=== PATIENT | male | born 1935 | race Caucasian/White ===

== ENCOUNTER 2016-05-27 09:17 | Outpatient (CLI) | payer MEDICARE, OTHER | END 2016-05-27 09:18 | disposition home or self-care (01) | DX: M79.672 Pain in left foot (principal) ==

== ENCOUNTER 2016-08-25 07:11 | Outpatient (CLI) | payer MEDICARE, OTHER | END 2016-08-25 07:12 | disposition home or self-care (01) | DX: I10 Essential (primary) hypertension (principal); M51.36 Other intervertebral disc degeneration, lumbar region; D64.9 Anemia, unspecified; E78.5 Hyperlipidemia, unspecified ==

== ENCOUNTER 2017-02-10 12:42 | Outpatient (CLI) | payer MEDICARE, OTHER ==
[2017-02-10 13:06] LABS: ALBUMIN/GLOBULIN RATIO 1.4 (1.0-2.2); BILIRUBIN,TOTAL 0.9 mg/dL (0.2-1.0); CALCIUM 9.9 mg/dL (8.5-10.3); CREATININE 0.8 mg/dL (0.6-1.2); TOTAL PROTEIN 7.8 g/dL (6.7-8.2)
== END 2017-02-10 12:43 | disposition home or self-care (01) ==
LOC: LAB 12:42
PROVIDERS: ATTEND Family Medicine
DX: D64.9 Anemia, unspecified (principal); I10 Essential (primary) hypertension; K21.9 Gastro-esophageal reflux disease without esophagitis; E78.5 Hyperlipidemia, unspecified; Z12.5 Encounter for screening for malignant neoplasm of prostate
CPT/HCPCS: 36415; 80053

== ENCOUNTER 2017-02-13 07:41 | Outpatient (CLI) | payer MEDICARE, OTHER ==
[2017-02-13] MEDS ORDERED: GADOBUTROL 7.5 MMOL/7.5 ML VIAL ONE (08:02)
[2017-02-13] MEDS ORDERED: GADOBUTROL 7.5 MMOL/7.5 ML VIAL IVP ONE (08:30)
--- NOTE | 2017-02-13 16:17 | MRI Report ---
EXAM: MRI LUMBAR SPINE WITHOUT AND WITH CONTRAST EXAM DATE: 02/13/2017 08:36 AM. CLINICAL HISTORY: Acute low back pain after surgery 2 years ago. Pain radiates to the left leg for 2 weeks. COMPARISONS: 02/02/2017 radiograph, MRI 05/06/2013. TECHNIQUE: Multiplanar, multisequence T1-weighted and fluid-sensitive sequences of the lumbar spine f rom T12 to S1 before and after administration of intravenous contrast. IV contrast: 6 mL Gadavist. Ot her: None. FINDINGS: Spinal Cord: The conus terminates at T12-L1. No signal abnormality in the visualized spinal cord. Alignment: Grade 1 anterolisthesis of L3 on L4 measures 4 mm and is new since the prior MRI. Bone Marrow: The prior radiograph demonstrates 5 nonrib-bearing lumbar vertebral bodies. No fractures . Type I endplate changes at L3-L4. There has been an anterior posterior fusion procedure at L4-L5 wi th paired posterior rods, bilateral pedicle screws, and intervertebral disk spacer. Solid bony union cannot be confirmed by this modality. Disk Levels/Facets: T11-T12: Unremarkable. T12-L1: Unremarkable. L1-L2: Unremarkable. L2-L3: Moderate ligamentum flavum hypertrophy and facet hypertrophy result in mild spinal canal and m inimal bilateral foraminal narrowing. L3-L4: There is new moderate disk height loss. The patient has a central posterior disk extrusion todd t extends superiorly into the left along the L3 vertebral body. This combined with moderate ligamentu m flavum hypertrophy, and severe facet hypertrophy results in moderate spinal canal and mild bilatera l foraminal narrowing. The extruded disk fragment measures approximately 1.6 x 0.7 x 1.0 cm. L4-L5: A right-sided laminotomy has been performed at this level and the ligamentum flava have been removed. A mild disk bulge and severe facet osteophyte as cause minimal bilateral foraminal narrowing . L5-S1: There is severe disk height loss and desiccation. A broad-based disk bulge and mild facet hype rtrophy cause minimal bilateral foraminal narrowing. Spinal Canal: No enhancing masses within the spinal canal. No epidural abscess. Musculature: Normal. No edema, abnormal enhancement, or fatty atrophy. Other: The visualized pelvic cavity is unremarkable. IMPRESSION: 1. Fusion procedure at L4-L5. 2. New grade 1 anterolisthesis of L3 on L4. 3. Mild spinal canal narrowing at L2-L3 due to posterior element degenerative changes. 4. Moderate spinal canal and mild bilateral foraminal narrowing at L3-L4 due to posterior element deg enerative changes and new disk extrusion. Comment: The following findings are so common in adults without low back pain that while we report th eir presence, they must be interpreted with caution and in the context of the clinical situation. (Re annabel Madison et al, Spine 2001) Prevalence of findings in patients without low back pain: Disk degeneration (any evidence): 92% Disk desiccation/T2 signal loss: 83% Disk height loss: 56% Disk bulge: 64% Disk protrusion: 32% Annular tear/high intensity zone: 38% [facility] Referring Provider Line: [phone] SITE ID: [id number]
== END 2017-02-13 07:42 | disposition home or self-care (01) ==
LOC: DI 07:41
PROVIDERS: ATTEND Family Medicine
DX: M51.26 Other intervertebral disc displacement, lumbar region (principal); M47.896 Other spondylosis, lumbar region; M51.37 Other intervertebral disc degeneration, lumbosacral region; M47.897 Other spondylosis, lumbosacral region; M51.36 Other intervertebral disc degeneration, lumbar region; Z98.1 Arthrodesis status; M43.16 Spondylolisthesis, lumbar region
CPT/HCPCS: 72158; A9585

== ENCOUNTER 2017-03-13 07:08 | Outpatient (CLI) | payer MEDICARE, OTHER ==
[2017-03-13 14:03] LABS: ALBUMIN/GLOBULIN RATIO 1.4 (1.0-2.2); BILIRUBIN,TOTAL 0.6 mg/dL (0.2-1.0); CREATININE 0.9 mg/dL (0.6-1.2); POTASSIUM 4.6 mmol/L (3.5-5.0); TOTAL PROTEIN 7.1 g/dL (6.7-8.2)
== END 2017-03-13 07:09 | disposition home or self-care (01) ==
LOC: LAB.WCP 07:08
PROVIDERS: ATTEND Family Medicine
DX: D64.9 Anemia, unspecified (principal); I10 Essential (primary) hypertension; K21.9 Gastro-esophageal reflux disease without esophagitis; E78.5 Hyperlipidemia, unspecified; Z12.5 Encounter for screening for malignant neoplasm of prostate
CPT/HCPCS: 36415; 80053

== ENCOUNTER 2017-05-21 11:07 | Emergency (ER) | payer MEDICARE, OTHER ==
--- NOTE | 2017-05-21 11:22 | ED Physician Documentation ---
History of Present Illness - Stated complaint Stated Complaint: SOA/CHEST AND SHOULDER PX - Chief complaint Chief Complaint: Cardiac - Additonal information Additional information: hx from pt today at 6 AM he leaned over and felt " a catch" in his L trap region hurts to breathe and move every since so relief with going for a walk no relief with rest sitting in a chair hx PACs but not CAD recent mild cough no leg edema Review of Systems Constitutional: denies: Fever Cardiac: denies: Chest pain / pressure (posterior trap region), Pedal edema Respiratory: reports: Cough. denies: Dyspnea GI: denies: Abdominal Pain, Nausea, Vomiting Musculoskeletal: denies: Extremity swelling Endocrine: denies: Easy bruising / bleeding Immunocompromised: denies: Immunocompromised PD PAST MEDICAL HISTORY - Past Surgical History General: Cholecystectomy - Present Medications Home Medications: Ambulatory Orders Medication Instructions Recorded Confirmed Aspirin [Ecotrin] 06/08/14 06/08/14 Esomeprazole [NexIUM] 06/08/14 06/08/14 Losartan [Cozaar] 100 06/08/14 06/08/14 Metoprolol Tartrate 06/08/14 06/08/14 oxyCODONE/ACET 5/325 [Percocet 5 06/08/14 06/08/14 mg/325 mg] Ezetimibe/Simvastatin [Vytorin 10 mg PO DAILY 05/21/17 05/21/17 10-20 mg Tablet] Lidocaine Patch 5% [Lidoderm Patch] 1 each TOP DAILY PRN #10 patch 05/21/17 - Allergies Allergies/Adverse Reactions: Allergies Allergy/AdvReac Type Severity Reaction Status Date / Time No Known Drug Allergies Allergy Verified 05/21/17 11:20 - Social History Does the pt smoke?: No Smoking Status: Never smoker Does the pt drink ETOH?: Yes Does the pt have substance abuse?: No PD ED PE NORMAL - Vitals Vital signs reviewed: Yes - General General: Alert and oriented X 3 - HEENT HEENT: PERRL - Neck Neck: Supple, no meningeal sign - Cardiac Cardiac: RRR - Respiratory Respiratory: No respiratory distress, Clear bilaterally, Other (TTP over L trap region s swelling brusing or rash, painful to move as well, no crepitus) - Abdomen Abdomen: Soft, Non tender - Derm Derm: Normal color - Extremities Extremities: No edema, No calf tenderness / cord - Neuro Neuro: No motor deficit Results - Vitals Vitals: Vital Signs - 24 hr 05/21/17 05/21/17 11:11 12:32 Temperature 36.4 C L 36.3 C L Heart Rate 74 73 Respiratory 17 17 Rate Blood Pressure 159/81 H 135/84 H O2 Saturation 100 93 Oxygen O2 Source Room air - EKG (time done) 1117 Rate: Rate (enter#) (69) Rhythm: NSR Intervals: RBBB Ischemia: Non specific changes Compare to prior EKG: Old EKG unavailable, Other (pt states prior EKG at [facility] but none in EMR to see) - Labs Labs: Laboratory Tests 05/21/17 05/21/17 05/21/17 11:20 11:20 11:20 WBC 5.4 RBC 4.38 L Hgb 14.6 Hct 41.7 L MCV 95.3 H MCH 33.3 H MCHC 35.0 RDW 12.8 Plt Count 188 MPV 8.6 Neut # 3.1 Lymph # 1.4 L [place] # 0.8 Eos # 0.2 Baso # 0.1 Absolute Nucleated RBC 0.00 Nucleated RBC % 0.1 Sodium 138 Potassium 4.0 Chloride 100 L Carbon Dioxide 28 Anion Gap 10.0 BUN 17 Creatinine 1.1 Estimated GFR (MDRD) 64 L Glucose 121 H Calcium 9.5 Total Bilirubin 0.6 AST 30 ALT 28 Alkaline Phosphatase 68 Troponin I < 0.04 Total Protein 7.8 Albumin 4.5 Globulin 3.3 Albumin/Globulin Ratio 1.4 Lipase 43 - Rads (name of study) CXR Radiology: See rad report (NACPD, tight aortic knob no cap or effusion) PD MEDICAL DECISION MAKING - ED course ED course: seems muscular - started with a stretch, hurts to touch, hurts to move checked EKG which shows RBBB but no acute ischemia neg trop drawn 5-6 hr after onset sx CXR shows no pneumo evidence of dissection etc no leg pain swelling soa tachy tachypnea or hypoxia to suggest PE feel safe to dc with lido patch for pain Departure - Departure Disposition: 01 Home, Self Care Clinical Impression: Upper back strain Qualifiers: Encounter type: initial encounter Qualified Code(s): S29.012A - Strain of muscle and tendon of back wall of thorax, initial encounter Condition: Good Instructions: ED Neck Back Pain General Follow-Up: Tejinder Montilla MD [Primary Care Provider] - (next week if not better) Prescriptions: Lidocaine Patch 5% [Lidoderm Patch] 1 each TOP DAILY PRN #10 patch PRN Reason: Pain Comments: Based on your history, exam, xray, EKG and labs I do not think you are having a heart problem, or a blood clot in your lungs, or an aneurysm, or a collapsed lung. It seems like the pain is due to a muscle injury to the trapezius region of your upper left back. Given the reassuring work up, I think it is safe for you to go home with a patch to apply to your back for the pain. You can also take tylenol as needed
[2017-05-21 11:39] LABS: BASOPHILS # (AUTO) 0.1 10^3/uL (0.0-0.1); BASOPHILS % (AUTO) 1.3 %; EOSINOPHILS # (AUTO) 0.2 10^3/uL (0.0-0.7); EOSINOPHILS % (AUTO) 3.2 %; HGB - HEMOGLOBIN 14.6 g/dL (14.0-18.0); LYMPHOCYTES # (AUTO) 1.4 10^3/uL (1.5-3.5); LYMPHOCYTES % (AUTO) 25.2 %; MEAN CORPUSCULAR HEMOGLOBIN 33.3 pg (27.0-31.0); MEAN CORPUSCULAR VOLUME 95.3 fL (80.0-94.0); MEAN PLATELET VOLUME 8.6 fL (7.4-11.4); MONOCYTES # (AUTO) 0.8 10^3/uL (0.0-1.0); MONOCYTES % (AUTO) 13.9 %; NEUTROPHILS # (AUTO) 3.1 10^3/uL (1.5-6.6); NEUTROPHILS % (AUTO) 56.4 %; PLT - PLATELET COUNT 188 10^3/uL (130-450); RED BLOOD COUNT 4.38 10^6/uL (4.70-6.10); RED CELL DISTRIBUTION WIDTH 12.8 % (12.0-15.0); WHITE BLOOD COUNT 5.4 x10^3/uL (4.8-10.8)
[2017-05-21 11:46] LABS: ALBUMIN 4.5 g/dL (3.2-5.5); ALBUMIN/GLOBULIN RATIO 1.4 (1.0-2.2); BILIRUBIN,TOTAL 0.6 mg/dL (0.2-1.0); CALCIUM 9.5 mg/dL (8.5-10.3); CREATININE 1.1 mg/dL (0.6-1.2); TOTAL PROTEIN 7.8 g/dL (6.7-8.2)
--- NOTE | 2017-05-21 12:10 | XRAY Report ---
EXAM: CHEST RADIOGRAPHY EXAM DATE: 05/21/2017 11:43 AM. CLINICAL HISTORY: Chest pain. COMPARISON: 06/13/2011. TECHNIQUE: 1 view. FINDINGS: Lungs/Pleura: No focal opacities evident. No pleural effusion. No pneumothorax. Mediastinum: Within exam limitations, the cardiomediastinal contour is normal. Atherosclerotic calcif ication in the aortic arch. Other: None. IMPRESSION: Grossly clear. [facility] Referring Provider Line: [phone] SITE ID: [id number]
[2017-05-21] MEDS ORDERED: LIDOCAINE PATCH 5% TOP STA (12:18)
[2017-05-21 13:09] VITALS: BP 146/82
== END 2017-05-21 13:17 | disposition home or self-care (01) ==
LOC: ED 11:07
DX: S29.012A Strain of muscle and tendon of back wall of thorax, initial encounter (principal); X50.9XXA Other and unspecified overexertion or strenuous movements or postures, initial encounter; I45.10 Unspecified right bundle-branch block
CPT/HCPCS: 36415; 71010; 80053; 83690; 84484; 85025; 93005; 99283; 99284; A9270

== ENCOUNTER 2017-08-10 07:10 | Outpatient (CLI) | payer MEDICARE, OTHER ==
[2017-08-10 13:03] LABS: BASOPHILS % (AUTO) 0.5 %; EOSINOPHILS # (AUTO) 0.3 10^3/uL (0.0-0.7); EOSINOPHILS % (AUTO) 5.4 %; HGB - HEMOGLOBIN 14.2 g/dL (14.0-18.0); LYMPHOCYTES % (AUTO) 36.1 %; MEAN CORPUSCULAR HEMOGLOBIN 32.6 pg (27.0-31.0); MEAN CORPUSCULAR HGB CONC 34.6 g/dL (32.0-36.0); MONOCYTES # (AUTO) 0.6 10^3/uL (0.0-1.0); MONOCYTES % (AUTO) 11.1 %; NEUTROPHILS # (AUTO) 2.6 10^3/uL (1.5-6.6); NEUTROPHILS % (AUTO) 46.9 %; PLT - PLATELET COUNT 173 10^3/uL (130-450); RED BLOOD COUNT 4.35 10^6/uL (4.70-6.10); RED CELL DISTRIBUTION WIDTH 12.4 % (12.0-15.0); WHITE BLOOD COUNT 5.5 x10^3/uL (4.8-10.8)
[2017-08-10 13:21] LABS: ALBUMIN 4.3 g/dL (3.2-5.5); ALBUMIN/GLOBULIN RATIO 1.5 (1.0-2.2); ALKALINE PHOSPHATASE 53 IU/L (42-121); ALT ALANINE AMINOTRANSFERASE 24 IU/L (10-60); AST ASPARTATE AMINOTRANSFERASE 26 IU/L (10-42); BILIRUBIN,TOTAL 0.7 mg/dL (0.2-1.0); BUN - BLOOD UREA NITROGEN 19 mg/dL (6-20); CALCIUM 9.1 mg/dL (8.5-10.3); CARBON DIOXIDE - CO2 27 mmol/L (21-32); CHLORIDE 100 mmol/L (101-111); CHOL/HDL RATIO 2.6 (<5.0); CHOLESTEROL 171 mg/dL; CREATININE 0.9 mg/dL (0.6-1.2); GFR - MDRD 81 (>89); GLUCOSE 90 mg/dL (70-100); HDL CHOLESTEROL 67 mg/dL; LDL CHOLESTEROL,CALCULATED 90 mg/dL; LDL/HDL RATIO 1.3 (<3.6); SODIUM 136 mmol/L (135-145); TOTAL PROTEIN 7.1 g/dL (6.7-8.2); VLDL CHOLESTEROL 14 mg/dL
== END 2017-08-10 07:11 ==
LOC: LAB.WCP 07:10
PROVIDERS: ATTEND Family Medicine
DX: I10 Essential (primary) hypertension (principal); E78.5 Hyperlipidemia, unspecified; Z12.5 Encounter for screening for malignant neoplasm of prostate; D64.9 Anemia, unspecified
CPT/HCPCS: 36415; 80053; 80061; 85025; G0103; 83721; 84153

== ENCOUNTER 2018-02-08 13:58 | Outpatient (CLI) | payer MEDICARE, OTHER ==
--- NOTE | 2018-02-09 10:02 | XRAY Report ---
Reason: SEVERE PAIN BALL OF RT FOOT AND RIGHT ANKLE Procedure Date: 02/08/2018 Accession Number: [id number] / [id number] Procedure: XR - Foot 3 View RT CPT Code: FULL RESULT: EXAM: RIGHT FOOT RADIOGRAPHY EXAM DATE: 02/08/2018 02:39 PM. CLINICAL HISTORY: Severe pain ball of right foot and right ankle. COMPARISON: None. TECHNIQUE: 3 views. FINDINGS: Bones: Normal. No fractures or bone lesions. Joints: Normal. No subluxations. 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 No acute fracture or dislocation is identified. IMPRESSION: Question crystalline deposition disease such as gout or pseudogout. [facility]
--- NOTE | 2018-02-09 10:02 | XRAY Report ---
Reason: SEVERE PAIN BALL OF RT FOOT AND RIGHT ANKLE Procedure Date: 02/08/2018 Accession Number: [id number] / [id number] Procedure: XR - Ankle 3 View RT CPT Code: FULL RESULT: EXAM: RIGHT ANKLE RADIOGRAPHY EXAM DATE: 02/08/2018 02:39 PM. CLINICAL HISTORY: Severe pain ball of right foot and right ankle. COMPARISON: None. TECHNIQUE: 3 views. FINDINGS: The ankle mortise is symmetric. Note is made of prominent os trigonum which should be correlated to posterior impingement syndrome. Well-rounded osseous densities along the inferior margin of the medial malleolus may represent accessory ossicles or evidence of previous remote trauma. Soft tissues appear unremarkable. No acute fracture or dislocation is identified. IMPRESSION: Question of posterior impingement syndrome. No acute fracture or dislocation. [facility]
== END 2018-02-08 13:59 | disposition home or self-care (01) ==
LOC: DI 13:58
PROVIDERS: ATTEND Podiatrist
DX: M25.571 Pain in right ankle and joints of right foot (principal); M79.671 Pain in right foot

== ENCOUNTER 2018-02-15 13:45 | Outpatient (CLI) | payer MEDICARE, OTHER ==
[2018-02-15 18:40] LABS: BASOPHILS % (AUTO) 0.5 %; EOSINOPHILS # (AUTO) 0.1 10^3/uL (0.0-0.7); EOSINOPHILS % (AUTO) 2.2 %; LYMPHOCYTES # (AUTO) 1.7 10^3/uL (1.5-3.5); LYMPHOCYTES % (AUTO) 30.9 %; MEAN CORPUSCULAR HEMOGLOBIN 33.1 pg (27.0-31.0); MEAN CORPUSCULAR VOLUME 94.7 fL (80.0-94.0); MEAN PLATELET VOLUME 8.9 fL (7.4-11.4); MONOCYTES # (AUTO) 0.6 10^3/uL (0.0-1.0); MONOCYTES % (AUTO) 10.5 %; NEUTROPHILS # (AUTO) 3.2 10^3/uL (1.5-6.6); NEUTROPHILS % (AUTO) 55.9 %; PLT - PLATELET COUNT 187 10^3/uL (130-450); RED BLOOD COUNT 4.21 10^6/uL (4.70-6.10); RED CELL DISTRIBUTION WIDTH 13.1 % (12.0-15.0); WHITE BLOOD COUNT 5.7 x10^3/uL (4.8-10.8)
[2018-02-15 19:04] LABS: ALBUMIN 4.6 g/dL (3.2-5.5); ALBUMIN/GLOBULIN RATIO 1.6 (1.0-2.2); BILIRUBIN,TOTAL 0.8 mg/dL (0.2-1.0); CALCIUM 9.5 mg/dL (8.5-10.3); CREATININE 0.9 mg/dL (0.6-1.2); TOTAL PROTEIN 7.4 g/dL (6.7-8.2)
== END 2018-02-15 13:46 | disposition home or self-care (01) ==
LOC: LAB.WCP 13:45
PROVIDERS: ATTEND Family Medicine
DX: I10 Essential (primary) hypertension (principal)
CPT/HCPCS: 36415; 80053; 85025

== ENCOUNTER 2018-04-23 09:41 | Outpatient (CLI) | payer MEDICARE, OTHER | END 2018-04-23 09:42 | disposition home or self-care (01) | LOC: LAB.WCP 09:41 | PROVIDERS: ATTEND Family Medicine | DX: R51 Headache (principal) | CPT/HCPCS: 36415; 85651; 86140 ==

== ENCOUNTER 2018-05-01 07:38 | Outpatient (CLI) | payer MEDICARE, OTHER ==
--- NOTE | 2018-05-01 10:07 | MRI Report ---
Reason: HEADACHE Procedure Date: 05/01/2018 Accession Number: [id number] / [id number] Procedure: MRI - Brain W/O CPT Code: FULL RESULT: EXAM: MRI BRAIN WITHOUT CONTRAST EXAM DATE: 05/01/2018 08:09 AM. CLINICAL HISTORY: Headache. COMPARISON: MRI BRAIN 04/18/2011 1:33 PM. TECHNIQUE: Sagittal T1, axial DWI, axial T1, axial T2 FLAIR, coronal fat-suppressed T2 and axial gradient echo. FINDINGS: Mild generalized cerebral volume loss is present and appears progressive compared to the previous study. No evidence for acute abnormality such as ischemic infarct, cerebral hemorrhage or hydrocephalus. No mass effect, midline shift or abnormal subdural fluid collection. Grossly stable relatively mild findings of multifocal chronic cerebral white matter disease, T2 hyperintense signal changes are nonspecific but likely attributable to aging and chronic microangiopathy that is not overtly progressive. More prominent fluid opacity or mucosal thickening of the far inferolateral left sphenoid sinus recess. Probably chronic stable additional frontal, ethmoid and maxillary mild mucosal thickening without clear evidence of air-fluid level or other evidence of progressive sinus disease (that might be more clearly delineated with a dedicated sinus CT). No focal pathologic appearing marrow signal changes in the skull or clivus. The major arterial skull base flow voids are present. No evidence for space-occupying mass in the region of the pituitary fossa. Unremarkable contours of the optic chiasm. IMPRESSION: 1. Mildly progressive generalized cerebral volume loss consistent with aging. 2. No evidence for acute intracranial abnormality or space-occupying mass allowing for the inherent limitations of noncontrast imaging. 3. Essentially stable mild probably age-related cerebral white matter disease. 4. Multifocal paranasal sinus mucosal thickening. This appears more prominent in the inferolateral left sphenoid sinus recess. [facility]
== END 2018-05-01 07:39 | disposition home or self-care (01) ==
LOC: DI 07:38
PROVIDERS: ATTEND Family Medicine
DX: R51 Headache (principal); R90.82 White matter disease, unspecified
CPT/HCPCS: 70551

== ENCOUNTER 2018-08-21 22:15 | Outpatient (CLI) | payer MEDICARE, OTHER ==
--- NOTE | 2018-08-22 02:08 | Ultrasound Report ---
Reason: TESTICULAR PAIN,RIGHT Procedure Date: 08/21/2018 Accession Number: [id number] / [id number] Procedure: US - Testicle w/Doppler CPT Code: FULL RESULT: EXAM: SCROTAL ULTRASOUND EXAM DATE: 08/21/2018 10:46 PM. CLINICAL HISTORY: TESTICULAR PAIN,RIGHT. COMPARISON: None. TECHNIQUE: Real-time scanning was performed with static images obtained. Color-flow images were utilized. FINDINGS: Right: Testis: 4.7 x 2.3 x 3.2 cm. Heterogeneous architecture. Epididymis: 0.9 x 0.7 x 0.8 cm. Normal size and echotexture. No mass or abnormal blood flow. Hydrocele: None. Varicocele: None. Left: Testis: 4.2 x 2.0 x 2.9 cm. Heterogeneous architecture. Epididymis: 1.1 x 0.9 x 0.5 cm. Normal size and echotexture. No mass or abnormal blood flow. Hydrocele: Yes small Varicocele: None. IMPRESSION: 1. Small left hydrocele otherwise negative study. [facility]
== END 2018-08-21 22:16 | disposition home or self-care (01) ==
LOC: DI 22:15
PROVIDERS: ATTEND Family Medicine
DX: N43.3 Hydrocele, unspecified (principal)
CPT/HCPCS: 76870; 93975

== ENCOUNTER 2018-08-23 07:04 | Outpatient (CLI) | payer MEDICARE, OTHER ==
[2018-08-23 13:11] LABS: BASOPHILS % (AUTO) 0.6 %; EOSINOPHILS # (AUTO) 0.2 10^3/uL (0.0-0.7); LYMPHOCYTES # (AUTO) 1.5 10^3/uL (1.5-3.5); LYMPHOCYTES % (AUTO) 30.8 %; MEAN CORPUSCULAR HEMOGLOBIN 31.9 pg (27.0-31.0); MEAN CORPUSCULAR HGB CONC 34.5 g/dL (32.0-36.0); MEAN CORPUSCULAR VOLUME 92.6 fL (80.0-94.0); MEAN PLATELET VOLUME 8.9 fL (7.4-11.4); MONOCYTES # (AUTO) 0.5 10^3/uL (0.0-1.0); MONOCYTES % (AUTO) 10.2 %; NEUTROPHILS # (AUTO) 2.7 10^3/uL (1.5-6.6); NEUTROPHILS % (AUTO) 54.4 %; PLT - PLATELET COUNT 198 10^3/uL (130-450); RED CELL DISTRIBUTION WIDTH 12.8 % (12.0-15.0); WHITE BLOOD COUNT 4.9 x10^3/uL (4.8-10.8)
[2018-08-23 13:31] LABS: ALBUMIN 4.2 g/dL (3.2-5.5); ALBUMIN/GLOBULIN RATIO 1.5 (1.0-2.2); ALKALINE PHOSPHATASE 51 IU/L (42-121); ALT ALANINE AMINOTRANSFERASE 28 IU/L (10-60); AST ASPARTATE AMINOTRANSFERASE 30 IU/L (10-42); BILIRUBIN,TOTAL 0.8 mg/dL (0.2-1.0); BUN - BLOOD UREA NITROGEN 17 mg/dL (6-20); CALCIUM 9.4 mg/dL (8.5-10.3); CARBON DIOXIDE - CO2 28 mmol/L (21-32); CHLORIDE 99 mmol/L (101-111); CHOL/HDL RATIO 2.6 (<5.0); CHOLESTEROL 153 mg/dL; CREATININE 0.9 mg/dL (0.6-1.2); GFR - MDRD 81 (>89); GLUCOSE 96 mg/dL (70-100); HDL CHOLESTEROL 58 mg/dL; LDL CHOLESTEROL,CALCULATED 84 mg/dL; LDL/HDL RATIO 1.4 (<3.6); SODIUM 136 mmol/L (135-145); VLDL CHOLESTEROL 11 mg/dL
== END 2018-08-23 23:59 ==
LOC: LAB.WCP 07:04
PROVIDERS: ATTEND Family Medicine
DX: I10 Essential (primary) hypertension (principal); E78.5 Hyperlipidemia, unspecified
CPT/HCPCS: 36415; 80053; 80061; 83721; 85025

== ENCOUNTER 2019-04-17 09:49 | Emergency (ER) | payer MEDICARE, OTHER ==
--- NOTE | 2019-04-17 11:09 | ED Physician Documentation ---
PD HPI MALE - Stated complaint Stated Complaint: MALE - Chief complaint Chief Complaint: Abd Pain - History obtained from History obtained from: Patient - History of Present Illness Timing - onset: How many days ago (2) Timing - duration: Days (2) Timing - details: Gradual onset, Waxing and waning Associated symptoms: No: Dysuria, Urinary frequency, Testiclar pain (mainly having pain in inguinal area with local tenderness. no swelling nor pain in scrotum/testicle per se.) Similar symptoms before: Has not had sx before Review of Systems Constitutional: denies: Fever, Chills, Myalgias Nose: denies: Rhinorrhea / runny nose, Congestion Throat: denies: Sore throat Respiratory: denies: Cough GI: denies: Abdominal Pain, Nausea, Vomiting Skin: denies: Rash, Lesions Musculoskeletal: denies: Neck pain, Back pain PD PAST MEDICAL HISTORY - Past Medical History Cardiovascular: Hypertension, Arrhythmia GI: GERD : Benign prostate hypertrophy, Retention Musculoskeletal: Osteoarthritis, Gout, Chronic back pain - Past Surgical History General: Cholecystectomy Ortho: Shoulder arthroplasty, Spine surgery - Present Medications Home Medications: Ambulatory Orders Medication Instructions Recorded Confirmed Esomeprazole [NexIUM] 06/08/14 06/08/14 Losartan [Cozaar] 100 06/08/14 06/08/14 Metoprolol Tartrate 06/08/14 06/08/14 Ezetimibe/Simvastatin [Vytorin 10 mg PO DAILY 05/21/17 05/21/17 10-20 mg Tablet] Tamsulosin HCl [Flomax] 0.4 mg PO 04/17/19 04/17/19 - Allergies Allergies/Adverse Reactions: Allergies Allergy/AdvReac Type Severity Reaction Status Date / Time No Known Drug Allergies Allergy Verified 04/17/19 10:05 - Social History Does the pt smoke?: No Smoking Status: Never smoker Does the pt drink ETOH?: Yes Does the pt have substance abuse?: No PD ED PE NORMAL - Vitals Vital signs reviewed: Yes - General General: Alert and oriented X 3, No acute distress, Well developed/nourished - Neck Neck: Supple, no meningeal sign, No adenopathy - Cardiac Cardiac: RRR, No murmur - Respiratory Respiratory: Clear bilaterally - Abdomen Abdomen: Non distended, No organomegaly, Other (some tenderness right inguinal canal area without palpable hernia mass itself. Scrotum and testicle not tender and no swelling noted. ). No: Normal bowel sounds (increased, hyperactive bowel sounds. ) - Male Male : Other (no scrotal nor testicle tenderness nor swelling. ) - Rectal Rectal: Deferred - Back Back: No CVA TTP - Derm Derm: Normal color, Warm and dry - Extremities Extremities: No tenderness to palpate, Normal ROM s pain, No calf tenderness / cord - Neuro Neuro: Alert and oriented X 3, No motor deficit, Normal speech Results - Vitals Vitals: Vital Signs - 24 hr 04/17/19 04/17/19 04/17/19 10:04 12:08 14:04 Temperature 36.6 C 36.7 C Heart Rate 75 53 L 99 Respiratory 18 16 20 Rate Blood Pressure 142/93 H 141/82 H 138/114 H O2 Saturation 96 98 99 Oxygen O2 Source Room air - Labs Labs: Laboratory Tests 04/17/19 04/17/19 04/17/19 11:40 11:45 11:45 WBC 6.0 RBC 4.50 L Hgb 14.4 Hct 42.1 MCV 93.6 MCH 32.0 H MCHC 34.2 RDW 11.9 L Plt Count 192 MPV 10.6 Neut # (Auto) 3.8 Lymph # (Auto) 1.6 [place] # (Auto) 0.5 Eos # (Auto) 0.1 Baso # (Auto) 0.0 Absolute Nucleated RBC 0.00 Nucleated RBC % 0.0 Sodium 139 Potassium 4.2 Chloride 100 L Carbon Dioxide 30 Anion Gap 9.0 BUN 20 Creatinine 0.8 Estimated GFR (MDRD) 93 Glucose 101 H Calcium 9.6 Total Bilirubin 0.8 AST 27 ALT 25 Alkaline Phosphatase 55 Total Protein 7.6 Albumin 4.6 Globulin 3.0 Albumin/Globulin Ratio 1.5 Lipase 43 Urine Color YELLOW Urine Clarity CLEAR Urine pH 6.5 Ur Specific [place] <=1.005 Urine Protein NEGATIVE Urine Glucose (UA) NEGATIVE Urine Ketones NEGATIVE Urine Occult Blood NEGATIVE Urine Nitrite NEGATIVE Urine Bilirubin NEGATIVE Urine Urobilinogen 0.2 (NORMAL) Ur Leukocyte Esterase NEGATIVE Ur Microscopic Review NOT INDICATED Urine Culture Comments NOT INDICATED - Rads (name of study) abd CT Radiology: Prelim report reviewed (no kidney stones, masses, nor noted hernias. ), See rad report PD MEDICAL DECISION MAKING - ED course Complexity details: reviewed results, re-evaluated patient, considered differential (consider hernia, inguinal canal strain, atypical appendix, uretero lithiasis, among others. ), d/w patient Departure - Departure Disposition: 01 Home, Self Care Clinical Impression: Right inguinal pain Inguinal strain Qualifiers: Encounter type: initial encounter Laterality: right Qualified Code(s): S76.211A - Strain of adductor muscle, fascia and tendon of right thigh, initial encounter Condition: Stable Record reviewed to determine appropriate education?: Yes Instructions: ED Strain Abdominal Muscle Follow-Up: Constanza Graham DO [Primary Care Provider] - Comments: Your CT scan appears normal without any signs of underlying cause of your pain such as kidney stone or abscess or diverticulitis. There is no hernia evident on the CT scan though but certainly can be affected by the position of lying down with the scan. At this point it seems more likely that you have a strain of the inguinal canal tissue and muscles. Avoid heavy lifting and repetitive bending for the next several days to week. Use some anti-inflammatories such as ibuprofen or naproxen twice daily and add Tylenol if needed. Follow-up with your primary care if not improved over the next several days to week. Discharge Date/Time: 04/17/19 14:05
[2019-04-17] MEDS ORDERED: KETOROLAC 30 MG/ML VIAL IVP STA (11:42)
[2019-04-17] MEDS ORDERED: ACETAMINOPHEN 1,000 MG/100 ML 100 ML IV STA (11:42)
[2019-04-17 11:54] LABS: BILIRUBIN,URINE NEGATIVE (NEGATIVE); GLUCOSE, URINE (UA) NEGATIVE (NEGATIVE); KETONES,URINE (UA) NEGATIVE (NEGATIVE); LEUKOCYTE ESTERASE, URINE NEGATIVE (NEGATIVE); NITRITE,URINE NEGATIVE (NEGATIVE); OCCULT BLOOD,URINE NEGATIVE (NEGATIVE); PH,URINE 6.5 PH (5.0-7.5); PROTEIN,URINE NEGATIVE (NEGATIVE); UROBILINOGEN,URINE 0.2 (NORMAL) E.U./dL (NORMAL)
[2019-04-17 11:56] LABS: CLARITY,URINE CLEAR (CLEAR)
[2019-04-17] MEDS ORDERED: IOVERSOL 320 100 ML VIAL IVP ONE ×2 (11:58→17:10)
[2019-04-17 12:22] LABS: BASOPHILS % (AUTO) 0.3 %; EOSINOPHILS # (AUTO) 0.1 10^3/uL (0.0-0.7); EOSINOPHILS % (AUTO) 1.8 %; HGB - HEMOGLOBIN 14.4 g/dL (14.0-18.0); LYMPHOCYTES # (AUTO) 1.6 10^3/uL (1.5-3.5); MEAN CORPUSCULAR HGB CONC 34.2 g/dL (32.0-36.0); MEAN CORPUSCULAR VOLUME 93.6 fL (80.0-94.0); MEAN PLATELET VOLUME 10.6 fL (7.4-11.4); MONOCYTES # (AUTO) 0.5 10^3/uL (0.0-1.0); MONOCYTES % (AUTO) 7.9 %; NEUTROPHILS # (AUTO) 3.8 10^3/uL (1.5-6.6); NEUTROPHILS % (AUTO) 62.5 %; PLT - PLATELET COUNT 192 10^3/uL (130-450); RED CELL DISTRIBUTION WIDTH 11.9 % (12.0-15.0)
[2019-04-17 12:32] LABS: ALBUMIN 4.6 g/dL (3.2-5.5); ALBUMIN/GLOBULIN RATIO 1.5 (1.0-2.2); BILIRUBIN,TOTAL 0.8 mg/dL (0.2-1.0); CALCIUM 9.6 mg/dL (8.5-10.3); CREATININE 0.8 mg/dL (0.6-1.2); TOTAL PROTEIN 7.6 g/dL (6.7-8.2)
--- NOTE | 2019-04-17 13:27 | CT Report ---
Reason: right inguinal/lower abd pain and tender today Procedure Date: 04/17/2019 Accession Number: [id number] / [id number] Procedure: CT - Abdomen/Pelvis W CPT Code: Final Report FULL RESULT: EXAM: CT ABDOMEN AND PELVIS EXAM DATE: 04/17/2019 12:59 PM. CLINICAL HISTORY: Right inguinal/lower abdominal pain and tender today. COMPARISONS: None. TECHNIQUE: Routine helical CT imaging was performed through the abdomen and pelvis. IV contrast: Optiray 320 100 mL. Enteric contrast: No. Reconstructions: Coronal and sagittal. In accordance with CT protocol optimization, one or more of the following dose reduction techniques were utilized for this exam: automated exposure control, adjustment of mA and/or KV based on patient size, or use of iterative reconstructive technique. FINDINGS: Lung Bases: Unremarkable. Liver: Scattered predominantly subcentimeter low attenuation foci in both hepatic lobes, statistically compatible with cysts. Gallbladder/Bile Ducts: Gallbladder surgically absent. No biliary ductal dilatation. Spleen: Normal. Pancreas: Normal. Adrenal Glands: Normal. Kidneys: Normal. No masses or hydronephrosis. Peritoneal Cavity/Bowel: Normal. No free fluid, free air or adenopathy. No masses or acute inflammatory process. The appendix is not discretely seen. There are scattered diverticuli of the descending colon and sigmoid. No evidence of appendicitis, colitis, or diverticulitis. Pelvic Organs: Normal. The bladder and visualized pelvic organs are within normal limits. Vasculature: No aneurysms or other significant abnormality. Bones: Previous lower lumbar spinous fixation. Normal alignment. Other: No abdominal wall or inguinal canal hernias detected. IMPRESSION: No bowel obstruction. No evidence of appendicitis, colitis, or diverticulitis. No inguinal canal hernias detected. [facility]
[2019-04-17 14:05] VITALS: BP 138/114
== END 2019-04-17 14:05 | disposition home or self-care (01) ==
LOC: ED 09:49
DX: S76.211A Strain of adductor muscle, fascia and tendon of right thigh, initial encounter (principal); X58.XXXA Exposure to other specified factors, initial encounter; I10 Essential (primary) hypertension
CPT/HCPCS: 36415; 74177; 80053; 81003; 83690; 85025; 96365; 96375; 99283; 99284; J0131; Q9967; 81001; 87086

== ENCOUNTER 2019-05-10 07:02 | Outpatient (CLI) | payer MEDICARE, OTHER | END 2019-05-10 23:59 | disposition home or self-care (01) | LOC: LAB.WCP 07:02 | PROVIDERS: ATTEND Physician Assistant | DX: Z87.39 Personal history of other diseases of the musculoskeletal system and connective tissue (principal) | CPT/HCPCS: 36415; 84550 ==

== ENCOUNTER 2019-05-21 08:39 | Day surgery (SDC) | payer MEDICARE, OTHER ==
[2019-05-21] MEDS ORDERED: LACTATED RINGERS 1,000 ML IV ONE (08:51)
[2019-05-21] MEDS ORDERED: CEFAZOLIN SODIUM IN 0.9 % NACL 2 GM/100 ML BAG IV ONE (09:29)
--- NOTE | 2019-05-21 09:48 | ANESTHESIA ---
Pre-Anesthesia VS, & Labs - Diagnosis right inguinal hernia - Procedure right IHR Vital Signs: Temp Pulse Resp BP Pulse Ox 36.0 C L 70 16 151/89 H 97 05/21/19 08:51 05/21/19 08:51 05/21/19 08:51 05/21/19 08:51 05/21/19 08:51 Height 5 ft 10 in Weight (kg) 67.5 kg Body Mass Index 21.5 - NPO >8 hours Home Medications and Allergies Home Medications: Ambulatory Orders Atorvastatin Calcium 40 mg PO DAILY 05/08/19 Colchicine 0.6 mg PO DAILY PRN 05/08/19 Fluticasone [Flonase] 1 sprays ROMIE BID PRN 05/08/19 Gabapentin 300 mg PO BID 05/08/19 Pantoprazole Sodium [Protonix] 40 mg PO DAILY 05/08/19 Losartan [Cozaar] 100 mg PO DAILY 06/08/14 Metoprolol Tartrate 25 mg PO DAILY 06/08/14 Tamsulosin HCl [Flomax] 0.4 mg PO DAILY 04/17/19 Atorvastatin Calcium 40 mg PO DAILY 05/08/19 Colchicine 0.6 mg PO DAILY PRN 05/08/19 Fluticasone [Flonase] 1 sprays ROMIE BID PRN 05/08/19 Gabapentin 300 mg PO BID 05/08/19 Pantoprazole Sodium [Protonix] 40 mg PO DAILY 05/08/19 Allergies/Adverse Reactions: Allergies Allergy/AdvReac Type Severity Reaction Status Date / Time No Known Drug Allergies Allergy Verified 04/17/19 10:05 Anes History & Medical History - Anesthetic History Anesthesia Complications: reports: No previous complications - Medical History Cardiovascular: reports: Hypertension, High cholesterol, Murmur Pulmonary: reports: None Gastrointestinal: reports: GERD Urinary: reports: Benign prostate hypertrophy, Retention Musculoskeletal: reports: Osteoarthritis, Gout, Chronic back pain Endocrine/Autoimmune: reports: None Skin: reports: Other Smoking Status: Never smoker - Surgical History General: Cholecystectomy, Appendectomy Eyes Ears Nose Throat (EENT): Cataracts Urologic: Prostatic surgery Orthopedic: Rotator cuff repair, Spine surgery, Other Exam General: Alert, Oriented x3 Dental: WNL Mouth Opening: Greater than 4 Fingerbreadths Mallampati classification: II Thyromental Distance: greater than 6 cm Respiratory: Lungs clear Cardiovascular: Regular rate, Normal S1, Normal S2, No murmurs Mental/Cognitive Status: Alert/Oriented X3 Plan Anesthesia Type: General Consent for Procedure(s) Verified and Reviewed: Yes Code Status: Attempt Resuscitation ASA classification: 2-Mild systemic disease Is this case an emergency?: No
[2019-05-21] MEDS ORDERED: ceFAZolin 1 GM VIAL ONE (09:51)
[2019-05-21] MEDS ORDERED: ePHEDrine 50 MG/ML VIAL IVP ONE (10:11)
[2019-05-21] MEDS ORDERED: PROPOFOL 200 MG/20 ML VIAL IVP ONE (10:11)
[2019-05-21] MEDS ORDERED: LIDOCAINE-MPF 2% 5 ML VIAL IM ONE (10:11)
[2019-05-21] MEDS ORDERED: fentaNYL 100 MCG/2 ML VIAL IVP ONE (10:11)
[2019-05-21] MEDS ORDERED: DEXAMETHASONE 4 MG/ML VIAL IVP ONE (10:11)
[2019-05-21] MEDS ORDERED: ONDANSETRON 4 MG/2 ML VIAL IVP ONE (10:11)
[2019-05-21] MEDS ORDERED: MIDAZOLAM 2 MG/2 ML VIAL IVP ONE (10:11)
[2019-05-21] MEDS: BUPIVACAINE 0.25% PF 30 ML VIAL ONE ×2 (10:28→10:54)
[2019-05-21] MEDS: LIDOCAINE 1%-EPI 1:100000 20 ML MDV ONE ×2 (10:28→10:54)
--- NOTE | 2019-05-21 11:08 | OPERATIVE REPORT ---
Operative Report - General Procedure Date: 05/21/19 Planned Procedure: Right inguinal hernia repair Pre-Op Diagnosis: Painful right inguinal hernia Procedure Performed: Right inguinal hernia repair Post Op Diagnosis: Painful right inguinal hernia - Procedure Note Primary Surgeon: Smooth Anesthesia Provider: KEON Shukla Anesthesia Technique: General LMA, Local, Regional block Estimated Blood Loss (mL): 10 Findings: Large direct inguinal hernia Complications: None apparent - Other Other Information/Narrative: After obtaining informed consent, the patient is brought to the operating room and placed in the supine position on the operating table. Following successful induction of general endotracheal anesthesia, appropriate padding of all bony prominences, and placement of appropriate monitors, the abdomen was prepped and draped in the standard surgical fashion. A timeout was held per scope protocol. All elements of the surgical safety checklist were followed before, during, and after the procedure. We began the procedure by infiltrating a mixture of local anesthetics medial to the anterior superior iliac spine on the right. This was done to create an ileal inguinal nerve block. We then selected a site for an incision in the right lower quadrant just superior and lateral to the right pubic tubercle. This area was anesthetized with additional local anesthetic and an incision was created here.The incision was carried down through the skin and subcutaneous tissue to reveal the fascia of the external oblique aponeurosis. Retractor was placed and the aponeurosis was opened in direction of its fibers. The ilioinguinal nerve was immediately identified. Due to the significant pain the patient had preop we elected to divide the nerve here. The proximal end was ligated with Vicryl suture and tucked back into the transversalis muscle. We continued by identifying the spermatic cord and gently encircling it with a Pyrites drain. The hernia sac was carefully dissected free from the cord structures and was noted to be in the inferior lateral position. It consisted primarily of a large lipoma and a direct inguinal hernia. The hernia contents were placed back into the abdominal cavity. We elected to repair the hernia with a large Prolene hernia system mesh implant. This was dipped in Ancef containing solution and then deployed into the defect. The posterior leaflet was straightened and flattened in the preperitoneal space. The anterior leaflet was then nicked medially to provide a place for the spermatic cord and then closed with a Vicryl suture. The more inferior aspect was then sewn to Stefan's ligament medially. Laterally it was tucked under the external beak aponeurosis. The wound was checked for hemostasis and irrigated with warm saline solution. It was aspirated free of all fluid and particulate matter. The extra oblique aponeurosis was then closed with a running locking Vicryl suture Saul's fascia was closed with Vicryl suture and Monocryl stitches were placed in the skin. All sponge, needle, and instrument counts were correct at the conclusion of the case. The patient was allowed awaken from anesthesia without difficulty and taken to the postanesthesia care unit in good condition.
[2019-05-21] MEDS ORDERED: ONDANSETRON 4 MG/2 ML VIAL IVP PRN (11:09)
[2019-05-21] MEDS ORDERED: ACETAMINOPHEN 325 MG TABLET PO PRN (11:09)
[2019-05-21] MEDS ORDERED: oxyCODONE 5 MG TABLET PO PRN (11:09)
[2019-05-21] MEDS ORDERED: IBUPROFEN 600 MG TABLET PO PRN (11:09)
[2019-05-21 12:16] VITALS: BP 149/70
== END 2019-05-21 08:40 | disposition home or self-care (01) ==
LOC: SDS 08:39
PROVIDERS: ATTEND Surgery
PROC: 0YU50JZ Supplement Right Inguinal Region with Synthetic Substitute, Open Approach (ICD-10-PCS; principal; 2019-05-21 10:15)
DX: K40.90 Unilateral inguinal hernia, without obstruction or gangrene, not specified as recurrent (principal); D17.6 Benign lipomatous neoplasm of spermatic cord; I10 Essential (primary) hypertension; Z79.899 Other long term (current) drug therapy; Z79.82 Long term (current) use of aspirin; Z87.891 Personal history of nicotine dependence
CPT/HCPCS: 49505; C1781; J0690; J7120

== ENCOUNTER 2019-07-30 15:22 | Outpatient (CLI) | payer MEDICARE, OTHER ==
--- NOTE | 2019-07-31 14:54 | XRAY Report ---
Reason: COUGH Procedure Date: 07/30/2019 Accession Number: [id number] / [id number] Procedure: WCP - Chest 2 View X-Ray CPT Code: 71691 Final Report FULL RESULT: EXAM: CHEST RADIOGRAPHY EXAM DATE: 07/30/2019 03:46 PM. CLINICAL HISTORY: COUGH. COMPARISON: CHEST 1 VIEW 05/21/2017 11:35 AM. TECHNIQUE: 2 views. FINDINGS: Lungs/Pleura: No focal opacities evident. No pleural effusion. No pneumothorax. Normal volumes. Mediastinum: Heart and mediastinal contours are unremarkable. Other: None. IMPRESSION: Normal 2-view chest radiography. RADIA
== END 2019-07-30 23:59 | disposition home or self-care (01) ==
LOC: DI.WCP 15:22
PROVIDERS: ATTEND Nurse Practitioner Family
DX: R05 Cough (principal)
CPT/HCPCS: 71046

== ENCOUNTER 2019-09-05 07:48 | Outpatient (CLI) | payer MEDICARE, OTHER ==
--- NOTE | 2019-09-05 07:57 | XRAY Report ---
Reason: COUGH Procedure Date: 09/05/2019 Accession Number: [id number] / [id number] Procedure: WCP - Chest 2 View X-Ray CPT Code: 04242 Final Report FULL RESULT: EXAM: CHEST RADIOGRAPHY EXAM DATE: 09/05/2019 07:48 AM. CLINICAL HISTORY: COUGH. COMPARISON: CHEST 2 VIEW 07/30/2019 3:18 PM ABDOMEN/PELVIS W/ 04/17/2019 12:46 PM CHEST 1 VIEW 05/21/2017 11:35 AM. TECHNIQUE: 2 views. FINDINGS: Lungs/Pleura: Stable mild linear opacities in the left lung base likely reflect atelectasis or scarring. Otherwise, no focal consolidation, pleural effusion, or visible pneumothorax. Mediastinum: Atherosclerotic calcifications of the aortic arch. Heart and mediastinal contours are otherwise unremarkable. Other: Right upper quadrant surgical clips, as before. IMPRESSION: No radiographic evidence of acute cardiopulmonary process. RADIA
== END 2019-09-05 23:59 | disposition home or self-care (01) ==
LOC: DI.WCP 07:48
PROVIDERS: ATTEND Family Medicine
DX: R05 Cough (principal)
CPT/HCPCS: 71046

== ENCOUNTER 2019-09-11 08:15 | Outpatient (CLI) | payer MEDICARE, OTHER ==
--- NOTE | 2019-09-11 09:32 | CT Report ---
Reason: CHRONIC SINUSITIS Procedure Date: 09/11/2019 Accession Number: [id number] / [id number] Procedure: CT - Sinuses CPT Code: Final Report FULL RESULT: EXAM: CT SINUS EXAM DATE: 09/11/2019 08:30 AM. HISTORY: Chronic sinusitis. COMPARISONS: None. TECHNIQUE: Routine multi-axial CT imaging performed through the sinuses. Iodinated IV contrast: None. Reconstructions: Multiplanar reformats. In accordance with CT protocol optimization, one or more of the following dose reduction techniques were utilized for this exam: automated exposure control, adjustment of mA and/or KV based on patient size, or use of iterative reconstructive technique. FINDINGS: RIGHT Frontal: Mucosal thickening and partial opacification is seen inferiorly and posteriorly. Bubbly layering fluid level is seen. Ethmoid: Mild diffuse mucosal thickening is present. Maxillary: Mild mucosal thickening is seen superomedially. Sphenoid: Bubbly mucosal thickening predominates inferiorly and anteriorly. Drainage Pathways: Opacification of the frontoethmoidal recess is seen. Maxillary ostium and infundibulum are patent. Opacification of the sphenoethmoidal recess is seen. LEFT Frontal: Mild mucosal thickening is seen inferiorly. Ethmoid: Mild scattered mucosal thickening is noted. Maxillary: Mild mucosal thickening is seen superomedially. Sphenoid: Mild dependent polypoid mucosal thickening is noted. Drainage Pathways: The frontoethmoidal recess and ostiomeatal complex are patent. Opacification is seen at the sphenoethmoidal recess. Nasal Cavity: Mild nasal septal deviation is seen convex to the right.. No mass or significant anatomic abnormality evident. Osseous Structures: Unremarkable. Orbits: Unremarkable. Note is made of bilateral lens removal. Other: The mastoid air cells and middle ear cavities are clear. IMPRESSION: 1. Opacification of right frontoethmoidal recess. Opacification is seen inferiorly in right frontal sinus with layering fluid level. Mucosal thickening is seen throughout ethmoid air cells. 2. Opacification of bilateral sphenoethmoidal recess. Polypoid mucosal thickening is seen in the sphenoid sinuses. 3. Scattered mucosal thickening throughout remainder of paranasal sinuses. RADIA
== END 2019-09-11 08:16 | disposition home or self-care (01) ==
LOC: DI 08:15
PROVIDERS: ATTEND Family Medicine
DX: J01.81 Other acute recurrent sinusitis (principal)
CPT/HCPCS: 70486

== ENCOUNTER 2019-09-26 07:16 | Outpatient (CLI) | payer MEDICARE, OTHER ==
[2019-09-26 13:13] LABS: BASOPHILS % (AUTO) 0.5 %; EOSINOPHILS # (AUTO) 0.2 10^3/uL (0.0-0.7); EOSINOPHILS % (AUTO) 4.8 %; HGB - HEMOGLOBIN 13.8 g/dL (14.0-18.0); LYMPHOCYTES # (AUTO) 1.7 10^3/uL (1.5-3.5); LYMPHOCYTES % (AUTO) 38.1 %; MEAN CORPUSCULAR HEMOGLOBIN 31.7 pg (27.0-31.0); MEAN CORPUSCULAR VOLUME 95.9 fL (80.0-94.0); MONOCYTES # (AUTO) 0.5 10^3/uL (0.0-1.0); MONOCYTES % (AUTO) 11.2 %; NEUTROPHILS % (AUTO) 45.2 %; PLT - PLATELET COUNT 170 10^3/uL (130-450); RED BLOOD COUNT 4.36 10^6/uL (4.70-6.10); RED CELL DISTRIBUTION WIDTH 13.1 % (12.0-15.0); WHITE BLOOD COUNT 4.4 x10^3/uL (4.8-10.8)
[2019-09-26 13:44] LABS: ALBUMIN 4.4 g/dL (3.2-5.5); ALBUMIN/GLOBULIN RATIO 1.6 (1.0-2.2); ALKALINE PHOSPHATASE 61 IU/L (42-121); ALT ALANINE AMINOTRANSFERASE 23 IU/L (10-60); AST ASPARTATE AMINOTRANSFERASE 28 IU/L (10-42); BILIRUBIN,TOTAL 0.6 mg/dL (0.2-1.0); BUN - BLOOD UREA NITROGEN 19 mg/dL (6-20); CALCIUM 9.3 mg/dL (8.5-10.3); CARBON DIOXIDE - CO2 29 mmol/L (21-32); CHLORIDE 102 mmol/L (101-111); CHOL/HDL RATIO 2.4 (<5.0); CHOLESTEROL 147 mg/dL; CREATININE 0.9 mg/dL (0.6-1.2); GLUCOSE 104 mg/dL (70-100); HDL CHOLESTEROL 61 mg/dL; LDL CHOLESTEROL,CALCULATED 72 mg/dL; LDL/HDL RATIO 1.2 (<3.6); SODIUM 138 mmol/L (135-145); TOTAL PROTEIN 7.1 g/dL (6.7-8.2); VLDL CHOLESTEROL 14 mg/dL
== END 2019-09-26 23:59 | disposition home or self-care (01) ==
LOC: LAB.WCP 07:16
PROVIDERS: ATTEND Family Medicine
DX: I10 Essential (primary) hypertension (principal); E78.5 Hyperlipidemia, unspecified
CPT/HCPCS: 36415; 80053; 80061; 83721; 85025

== ENCOUNTER 2019-09-30 12:54 | Emergency (ER) | payer MEDICARE, OTHER ==
[2019-09-30] MEDS ORDERED: HYDROmorphone 1 MG/ML CARPUJECT IVP STA (13:16)
[2019-09-30] MEDS ORDERED: ONDANSETRON 4 MG/2 ML VIAL IVP STA (13:16)
[2019-09-30 13:31] LABS: BILIRUBIN,URINE NEGATIVE (NEGATIVE); GLUCOSE, URINE (UA) NEGATIVE (NEGATIVE); KETONES,URINE (UA) NEGATIVE (NEGATIVE); LEUKOCYTE ESTERASE, URINE NEGATIVE (NEGATIVE); NITRITE,URINE NEGATIVE (NEGATIVE); OCCULT BLOOD,URINE NEGATIVE (NEGATIVE); PH,URINE 6.5 PH (5.0-7.5); PROTEIN,URINE NEGATIVE (NEGATIVE); UROBILINOGEN,URINE 0.2 (NORMAL) E.U./dL (NORMAL)
[2019-09-30 13:32] LABS: CLARITY,URINE CLEAR (CLEAR)
--- NOTE | 2019-09-30 13:37 | ED Physician Documentation ---
PD HPI MALE - Stated complaint Stated Complaint: MALE - Chief complaint Chief Complaint: Abd Pain - History obtained from History obtained from: Patient - History of Present Illness Timing - onset: How many hours ago (5-6), Today Timing - duration: Hours (5-6) Timing - details: Abrupt onset (pain RLQ abd radiating to right flank), Still present Associated symptoms: Other (some pain/tenderness in the right inguinal area). No: Dysuria, Urinary frequency, Testiclar pain Similar symptoms before: Has not had sx before Recently seen: Surgery (had right inguinal hernia repair early May 2019.), Not recently seen Review of Systems Constitutional: denies: Fever, Chills Nose: denies: Rhinorrhea / runny nose, Congestion Throat: denies: Sore throat Respiratory: denies: Cough GI: reports: Abdominal Pain, Nausea. denies: Abdominal Swelling, Vomiting, Constipation, Diarrhea : denies: Dysuria, Frequency Skin: denies: Rash PD PAST MEDICAL HISTORY - Past Medical History Cardiovascular: Hypertension, High cholesterol, Murmur Respiratory: None Endocrine/Autoimmune: None GI: GERD : Benign prostate hypertrophy, Retention HEENT: Chronic hearing loss, Other Psych: Post traumatic stress disorder Musculoskeletal: Osteoarthritis, Gout, Chronic back pain Derm: Other - Past Surgical History General: Cholecystectomy, Appendectomy Ortho: Rotator cuff repair, Spine surgery, Other HEENT: Cataracts - Present Medications Home Medications: Ambulatory Orders Medication Instructions Recorded Confirmed Losartan [Cozaar] 100 mg PO DAILY 06/08/14 05/08/19 Metoprolol Tartrate 25 mg PO DAILY 06/08/14 05/08/19 Tamsulosin HCl [Flomax] 0.4 mg PO DAILY 04/17/19 05/08/19 Atorvastatin Calcium 40 mg PO DAILY 05/08/19 05/08/19 Colchicine 0.6 mg PO DAILY PRN 05/08/19 05/08/19 Fluticasone [Flonase] 1 sprays ROMIE BID PRN 05/08/19 05/08/19 Gabapentin 300 mg PO BID 05/08/19 05/08/19 Pantoprazole Sodium [Protonix] 40 mg PO DAILY 05/08/19 05/08/19 Ondansetron Odt [Zofran] 4 mg TL Q6H PRN #10 tablet 05/21/19 oxyCODONE [Roxicodone] 5 mg PO Q4H PRN #20 tablet 05/21/19 Hydrocodone/Acetaminophen [[place] 1 each PO Q6H PRN #15 tablet 09/30/19 5-325 Tablet] Naproxen 375 mg PO BID #20 tablet 09/30/19 - Allergies Allergies/Adverse Reactions: Allergies Allergy/AdvReac Type Severity Reaction Status Date / Time No Known Drug Allergies Allergy Verified 09/30/19 13:01 - Social History Does the pt smoke?: No Smoking Status: Never smoker Does the pt drink ETOH?: Yes Does the pt have substance abuse?: No PD ED PE NORMAL - Vitals Vital signs reviewed: Yes - General General: Alert and oriented X 3, No acute distress, Well developed/nourished - Cardiac Cardiac: RRR, No murmur - Respiratory Respiratory: Clear bilaterally - Abdomen Abdomen: Normal bowel sounds, Soft, Non distended, No organomegaly, Other (RLQ and inguinal area tenderness without mass in area of prior hernia repair. No noted redness nor warmth. There is scar tissue induration felt in the area. Above that is slightly tender RLQ as well. No percussion nor rebound tenderness. ) - Back Back: No spinal TTP, Other (some right CVA tenderness) - Derm Derm: Normal color, No rash Results - Vitals Vitals: Vital Signs - 24 hr 09/30/19 09/30/19 09/30/19 13:01 14:34 14:38 Temperature 36.0 C L 97.8 C H Heart Rate 72 73 Respiratory 16 16 Rate Blood Pressure 137/94 H 132/73 H O2 Saturation 97 95 09/30/19 16:31 Temperature Heart Rate 66 Respiratory 16 Rate Blood Pressure 155/93 H O2 Saturation 98 Oxygen O2 Source Room air - Labs Labs: Laboratory Tests 09/30/19 09/30/19 09/30/19 13:25 13:30 13:30 WBC 5.0 RBC 4.12 L Hgb 13.7 L Hct 38.6 L MCV 93.7 MCH 33.3 H MCHC 35.5 RDW 12.5 Plt Count 168 MPV 10.7 Neut # (Auto) 2.4 Lymph # (Auto) 1.8 [place] # (Auto) 0.6 Eos # (Auto) 0.2 Baso # (Auto) 0.0 Absolute Nucleated RBC 0.00 Nucleated RBC % 0.0 Sodium 135 Potassium 3.9 Chloride 100 L Carbon Dioxide 26 Anion Gap 9.0 BUN 20 Creatinine 0.9 Estimated GFR (MDRD) 81 L Glucose 99 Calcium 9.2 Total Bilirubin 1.1 H AST 28 ALT 21 Alkaline Phosphatase 65 Total Protein 7.2 Albumin 4.1 Globulin 3.1 Albumin/Globulin Ratio 1.3 Lipase 40 Urine Color YELLOW Urine Clarity CLEAR Urine pH 6.5 Ur Specific [place] <=1.005 Urine Protein NEGATIVE Urine Glucose (UA) NEGATIVE Urine Ketones NEGATIVE Urine Occult Blood NEGATIVE Urine Nitrite NEGATIVE Urine Bilirubin NEGATIVE Urine Urobilinogen 0.2 (NORMAL) Ur Leukocyte Esterase NEGATIVE Ur Microscopic Review NOT INDICATED Urine Culture Comments NOT INDICATED - Rads (name of study) KUB CT Radiology: Prelim report reviewed (no urinary tract process, no stones. There is some local stranding/inflammation in area right inguinal area. No hernia. No noted abscess. ), See rad report PD MEDICAL DECISION MAKING - ED course Complexity details: reviewed results (the CT does not show any stones. There is stranding/inflammation at the inner part of the prior hernia repair. No noted new hernia. No redness nor warmth to the area and surgery was 4 months ago, so unlikely to be infected. ), considered differential, d/w patient Departure - Departure Disposition: 01 Home, Self Care Clinical Impression: Right inguinal pain Condition: Stable Record reviewed to determine appropriate education?: Yes Instructions: ED Abdominal Pain Unkn Cause Follow-Up: Constanza Graham DO [Primary Care Provider] - Cleveland Rebollar MD [Provider Admit Priv/Credential] - Prescriptions: Hydrocodone/Acetaminophen [[place] 5-325 Tablet] 1 each PO Q6H PRN #15 tablet PRN Reason: Pain Naproxen 375 mg PO BID #20 tablet Comments: No kidney stones or signs of urinary tract infection. The CT scan did show some inflammation (stranding) in the area of your prior hernia repair. There is no recurrent hernia. No cysts labs or findings to suggest infection. We can treated with anti-inflammatories of naproxen twice daily for the next 7 to 10 days. To that add hydrocodone if needed for pains. Recheck if not improved well over the next few days and follow-up with your primary care or Dr. Chen if still persisting. Return if worsening pain or if you develop fever, redness, increased pain or other concerns. Discharge Date/Time: 09/30/19 16:32
[2019-09-30 13:49] LABS: BASOPHILS % (AUTO) 0.8 %; EOSINOPHILS # (AUTO) 0.2 10^3/uL (0.0-0.7); EOSINOPHILS % (AUTO) 3.4 %; HGB - HEMOGLOBIN 13.7 g/dL (14.0-18.0); LYMPHOCYTES # (AUTO) 1.8 10^3/uL (1.5-3.5); LYMPHOCYTES % (AUTO) 36.2 %; MEAN CORPUSCULAR HEMOGLOBIN 33.3 pg (27.0-31.0); MEAN CORPUSCULAR HGB CONC 35.5 g/dL (32.0-36.0); MEAN CORPUSCULAR VOLUME 93.7 fL (80.0-94.0); MEAN PLATELET VOLUME 10.7 fL (7.4-11.4); MONOCYTES # (AUTO) 0.6 10^3/uL (0.0-1.0); NEUTROPHILS # (AUTO) 2.4 10^3/uL (1.5-6.6); NEUTROPHILS % (AUTO) 48.6 %; PLT - PLATELET COUNT 168 10^3/uL (130-450); RED BLOOD COUNT 4.12 10^6/uL (4.70-6.10); RED CELL DISTRIBUTION WIDTH 12.5 % (12.0-15.0)
[2019-09-30 14:17] LABS: ALBUMIN 4.1 g/dL (3.2-5.5); ALBUMIN/GLOBULIN RATIO 1.3 (1.0-2.2); BILIRUBIN,TOTAL 1.1 mg/dL (0.2-1.0); CALCIUM 9.2 mg/dL (8.5-10.3); CREATININE 0.9 mg/dL (0.6-1.2); TOTAL PROTEIN 7.2 g/dL (6.7-8.2)
[2019-09-30] MEDS ORDERED: KETOROLAC 30 MG/ML VIAL IVP STA (14:24)
[2019-09-30] MEDS ORDERED: LIDOCAINE-MPF 2% 6 ML in SODIUM CHLORIDE 0.9% 50 ML IV STA (14:25)
--- NOTE | 2019-09-30 15:33 | CT Report ---
Reason: right low abd to flank pain today Procedure Date: 09/30/2019 Accession Number: [id number] / [id number] Procedure: CT - Abdomen/Pelvis WO CPT Code: Final Report FULL RESULT: EXAM: CT ABDOMEN AND PELVIS (CT KUB) EXAM DATE: 09/30/2019 02:58 PM. CLINICAL HISTORY: Right low abdominal to flank pain today. COMPARISONS: ABDOMEN/PELVIS W/ 04/17/2019 12:46 PM. TECHNIQUE: Routine axial helical CT imaging was performed through the abdomen and pelvis without IV contrast. Reconstructions: Coronal and sagittal. In accordance with CT protocol optimization, one or more of the following dose reduction techniques were utilized for this exam: automated exposure control, adjustment of mA and/or KV based on patient size, or use of iterative reconstructive technique. FINDINGS: Lung Bases: Unremarkable. Right Kidney/Ureter: No stones, hydronephrosis, or hydroureter. No perinephric fat stranding. Left Kidney/Ureter: No stones, hydronephrosis, or hydroureter. No perinephric fat stranding. Other Solid Organs: Stable cystic foci of the liver. The spleen, pancreas, and adrenal glands appear within normal limits. Previous cholecystectomy. Gallbladder/Bile Ducts: Previous cholecystectomy. Peritoneal Cavity: No free fluid, free air or vilma adenopathy. Bowel is grossly unremarkable. The appendix is not discretely seen. There is mild fat stranding in the right groin, not seen on previous exam, image 3/109, exact etiology indeterminate. No right groin hernia identified. Pelvic Organs: No bladder stones or wall thickening. Noncontrast images of the visualized pelvic organs are unremarkable. Vasculature: Unremarkable. Other: None. IMPRESSION: The urinary collecting system calculi or hydronephrosis identified. There is a subtle area of mesenteric fat stranding in the right groin medial to the femoral canal of uncertain etiology. No inguinal canal hernia identified. RADIA
[2019-09-30 16:32] VITALS: BP 155/93
== END 2019-09-30 16:32 | disposition home or self-care (01) ==
LOC: ED 12:54
DX: R10.31 Right lower quadrant pain (principal); R11.0 Nausea; Z98.890 Other specified postprocedural states; Z87.19 Personal history of other diseases of the digestive system; I10 Essential (primary) hypertension
CPT/HCPCS: 36415; 74176; 80053; 81003; 83690; 85025; 99284; J7040; 81001; 87086

== ENCOUNTER 2019-10-15 08:00 | Outpatient (CLI) | payer MEDICARE, OTHER ==
[2019-10-15 18:00] LABS: BASOPHILS % (AUTO) 0.5 %; EOSINOPHILS # (AUTO) 0.1 10^3/uL (0.0-0.7); HGB - HEMOGLOBIN 13.8 g/dL (14.0-18.0); LYMPHOCYTES # (AUTO) 2.1 10^3/uL (1.5-3.5); LYMPHOCYTES % (AUTO) 34.8 %; MEAN CORPUSCULAR HEMOGLOBIN 31.4 pg (27.0-31.0); MEAN CORPUSCULAR HGB CONC 33.7 g/dL (32.0-36.0); MEAN CORPUSCULAR VOLUME 93.4 fL (80.0-94.0); MEAN PLATELET VOLUME 10.9 fL (7.4-11.4); MONOCYTES # (AUTO) 0.5 10^3/uL (0.0-1.0); NEUTROPHILS # (AUTO) 3.2 10^3/uL (1.5-6.6); NEUTROPHILS % (AUTO) 53.5 %; PLT - PLATELET COUNT 167 10^3/uL (130-450); RED BLOOD COUNT 4.39 10^6/uL (4.70-6.10); RED CELL DISTRIBUTION WIDTH 12.9 % (12.0-15.0)
[2019-10-15 18:20] LABS: ALBUMIN 4.6 g/dL (3.2-5.5); ALBUMIN/GLOBULIN RATIO 1.6 (1.0-2.2); BILIRUBIN,TOTAL 0.9 mg/dL (0.2-1.0); CALCIUM 9.4 mg/dL (8.5-10.3); CREATININE 0.9 mg/dL (0.6-1.2); TOTAL PROTEIN 7.4 g/dL (6.7-8.2)
== END 2019-10-15 23:59 | disposition home or self-care (01) ==
LOC: LAB.WCP 08:00
PROVIDERS: ATTEND Nurse Practitioner
DX: M54.6 Pain in thoracic spine (principal); Z79.899 Other long term (current) drug therapy
CPT/HCPCS: 36415; 80053; 85025

== ENCOUNTER 2019-11-15 08:49 | Outpatient (CLI) | payer MEDICARE, OTHER ==
--- NOTE | 2019-11-15 09:00 | XRAY Report ---
Reason: RIGHT SIDED RIB PAIN Procedure Date: 11/15/2019 Accession Number: [id number] / [id number] Procedure: WCP - Ribs w/PA Chest RT CPT Code: Final Report FULL RESULT: PROCEDURE: Ribs w/PA Chest RT INDICATIONS: RIGHT SIDED RIB PAIN TECHNIQUE: 2 views of the right ribs were acquired, along with a single view chest. COMPARISON: Chest radiograph dated 09/05/2019 FINDINGS: Surgical changes and devices: None. Bones and chest wall: No fractures or dislocations. No suspicious bony lesions. Overlying soft tissues appear unremarkable. Lungs and pleura: No pleural effusions or pneumothorax. Lungs appear clear. Mediastinum: Mediastinal contours appear normal. Heart size is normal. IMPRESSION: No definite displaced right rib fracture is seen. No acute cardiopulmonary pathology. Reviewed by: Albert Greco MD on 11/15/2019 8:59 AM PDT Approved by: Albert Greco MD on 11/15/2019 8:59 AM PDT Station ID: [id number]
== END 2019-11-15 23:59 | disposition home or self-care (01) ==
LOC: DI.WCP 08:49
PROVIDERS: ATTEND Family Medicine
DX: R07.81 Pleurodynia (principal)

== ENCOUNTER 2019-11-15 15:21 | Outpatient (CLI) | payer MEDICARE, OTHER ==
--- NOTE | 2019-11-15 16:10 | CT Report ---
PROCEDURE: CHEST WO INDICATIONS: RT SIDED RIB PAIN TECHNIQUE: Noncontrast 5 mm thick sections acquired from the pulmonary apices to the posterior costophrenic angl es. 7 mm thick coronal and sagittal MIP reformats were then acquired. For radiation dose reduction, the following was used: automated exposure control, adjustment of mA and/or kV according to patient size. COMPARISON: Chest x-ray 11/15/2019 FINDINGS: Image quality: Excellent. Lungs and pleura: No acute air space opacities. No pleural effusions or pneumothorax. Central and peripheral airways are patent and normal in caliber. Mediastinum: Heart size is normal. No pericardial effusion. No mediastinal adenopathy by size crit eria. Thoracic aorta and central pulmonary arteries are normal in size. Esophagus is normal in fred elisa. No hiatal hernia. Bones and chest wall: No suspicious bony lesions. No vertebral body compression fractures. No axil emmanuel or supraclavicular adenopathy by size criteria. The thyroid is normal in size. Abdomen: Low-attenuation hepatic foci are present. Visualized upper abdominal solid organs and bowel loops appear normal in the absence of contrast. IMPRESSION: 1. No visualized fracture. 2. Low-attenuation hepatic foci, with the larger lesions consistent with cysts. Smaller lesions are t oo small to definitively characterize although they could represent small cysts or potentially dixie iomas. The above findings and call back number were discussed with Dr. Darin Hughes's nurse, on 11/15/2019 at 3:59pm, as he was unavailable for immediate consultation. Reviewed by: Yohana Connors MD on 11/15/2019 4:08 PM PDT Approved by: Yohana Connors MD on 11/15/2019 4:08 PM PDT Station ID: [id number]
== END 2019-11-15 15:22 | disposition home or self-care (01) ==
LOC: DI 15:21
PROVIDERS: ATTEND Family Medicine
DX: K76.9 Liver disease, unspecified (principal); R07.81 Pleurodynia
CPT/HCPCS: 71250

== ENCOUNTER 2019-12-19 11:56 | Day surgery (SDC) | payer MEDICARE, OTHER ==
[2019-12-19] MEDS ORDERED: LACTATED RINGERS 1,000 ML IV ONE (12:01)
[2019-12-19 14:09] VITALS: BP 135/75
== END 2019-12-19 11:57 | disposition home or self-care (01) ==
LOC: SDS 11:56
PROVIDERS: ATTEND Surgery
PROC: 0DJD8ZZ Inspection of Lower Intestinal Tract, Via Natural or Artificial Opening Endoscopic (ICD-10-PCS; principal; 2019-12-19 13:15)
DX: Z12.11 Encounter for screening for malignant neoplasm of colon (principal); K64.8 Other hemorrhoids; K57.30 Diverticulosis of large intestine without perforation or abscess without bleeding; K58.9 Irritable bowel syndrome, unspecified; Z86.010 Personal history of colon polyps; Z87.891 Personal history of nicotine dependence
CPT/HCPCS: G0121; J7120

== ENCOUNTER 2020-03-04 08:00 | Outpatient (CLI) | payer MEDICARE, OTHER ==
[2020-03-04 12:27] LABS: BASOPHILS % (AUTO) 0.7 %; EOSINOPHILS # (AUTO) 0.3 10^3/uL (0.0-0.7); EOSINOPHILS % (AUTO) 7.1 %; HGB - HEMOGLOBIN 13.8 g/dL (14.0-18.0); LYMPHOCYTES # (AUTO) 1.7 10^3/uL (1.5-3.5); LYMPHOCYTES % (AUTO) 40.6 %; MEAN CORPUSCULAR HEMOGLOBIN 32.1 pg (27.0-31.0); MEAN CORPUSCULAR HGB CONC 32.9 g/dL (32.0-36.0); MEAN CORPUSCULAR VOLUME 97.7 fL (80.0-94.0); MEAN PLATELET VOLUME 10.7 fL (7.4-11.4); MONOCYTES # (AUTO) 0.4 10^3/uL (0.0-1.0); MONOCYTES % (AUTO) 9.7 %; NEUTROPHILS # (AUTO) 1.8 10^3/uL (1.5-6.6); NEUTROPHILS % (AUTO) 41.7 %; PLT - PLATELET COUNT 175 10^3/uL (130-450); RED CELL DISTRIBUTION WIDTH 12.5 % (12.0-15.0); WHITE BLOOD COUNT 4.2 x10^3/uL (4.8-10.8)
[2020-03-04 12:39] LABS: ALBUMIN 4.2 g/dL (3.2-5.5); ALBUMIN/GLOBULIN RATIO 1.4 (1.0-2.2); BILIRUBIN,TOTAL 0.8 mg/dL (0.2-1.0); CALCIUM 9.5 mg/dL (8.5-10.3); TOTAL PROTEIN 7.3 g/dL (6.7-8.2); URIC ACID 4.5 mg/dL (2.6-7.2)
== END 2020-03-04 08:01 | disposition home or self-care (01) ==
LOC: LAB.WCP 08:00
PROVIDERS: ATTEND Family Medicine
DX: I10 Essential (primary) hypertension (principal); M10.00 Idiopathic gout, unspecified site
CPT/HCPCS: 36415; 80053; 84550; 85025

== ENCOUNTER 2020-04-27 21:20 | Outpatient (CLI) | payer MEDICARE, OTHER | END 2020-04-27 21:21 | disposition home or self-care (01) | LOC: COV 21:20 | PROVIDERS: ATTEND Family Medicine | DX: R53.83 Other fatigue (principal); Z20.828 Contact with and (suspected) exposure to other viral communicable diseases ==

== ENCOUNTER 2020-06-22 07:37 | Outpatient (CLI) | payer MEDICARE, OTHER ==
--- NOTE | 2020-06-22 16:18 | XRAY Report ---
PROCEDURE: Lumbar Spine 2 View INDICATIONS: DEGENERATIVE DISC DISEASE, LUMBAR SPINE TECHNIQUE: 2 views of the lumbar spine were acquired. COMPARISON: X-ray lumbar spine 02/02/2017, MRI 02/13/2017 FINDINGS: Bones: 5 [id number] vertebrae are present. There is posterior fusion at L4-5 with intervertebr al spacer. Hardware is intact without evidence of fracture or periprosthetic lucency. There is trace retrolisthesis of L2 on L3, trace anterolisthesis of L3 on L4. Severe disc space narrowing is present at L5-S1, moderate to severe L3-4. No vertebral body compression fractures. Severe foraminal narrow ing is noted L5-S1, moderate to severe L4-5. Anterior bridging osteophytes are noted. No suspicious b mariela lesions. Soft tissues: Overlying bowel gas pattern is normal. No suspicious soft tissue calcifications. IMPRESSION: 1. Posterior fusion at L4-5. 2. Degenerative changes most notable at L5-S1. Reviewed by: Yohana Connors MD on 06/22/2020 4:16 PM PST Approved by: Yohana Connors MD on 06/22/2020 4:16 PM PST Station ID: [id number]
--- NOTE | 2020-06-22 16:20 | XRAY Report ---
PROCEDURE: Thoracic Spine 2 View INDICATIONS: THORACIC BACK PX TECHNIQUE: 3 views of the thoracic spine were acquired. COMPARISON: None. FINDINGS: Bones: No fractures or dislocations. No suspicious bony lesions. 12 pairs of ribs are noted, and a ppear intact where visualized. Multilevel disc space narrowing as well as anterior osteophytes are p resent. Soft tissues: No paravertebral stripe thickening. IMPRESSION: Degenerative disc space narrowing as above. Reviewed by: Yohana Connors MD on 06/22/2020 4:19 PM [facility] Approved by: Yohana Connors MD on 06/22/2020 4:19 PM [facility] Station ID: [id number]
== END 2020-06-22 23:59 | disposition home or self-care (01) ==
LOC: DI.N 07:37
PROVIDERS: ATTEND Family Medicine
DX: M51.34 Other intervertebral disc degeneration, thoracic region (principal); M43.16 Spondylolisthesis, lumbar region; M51.36 Other intervertebral disc degeneration, lumbar region; M48.061 Spinal stenosis, lumbar region without neurogenic claudication; M51.37 Other intervertebral disc degeneration, lumbosacral region; M48.07 Spinal stenosis, lumbosacral region; Z98.1 Arthrodesis status

== ENCOUNTER 2020-07-03 12:50 | Outpatient (CLI) | payer MEDICARE, OTHER ==
[2020-07-03 13:49] VITALS: BP 149/88
--- NOTE | 2020-07-03 13:49 | SLEEP CARE CONSULTATION ---
Information from patient questionnaire entered by Quita Granados. I have reviewed and concur with the information entered by Quita Granados. This document represents the service I personally performed and the decisions made by me, Geneva Torres ARNP. History of Present Illness Service Date and Time: 07/03/2020 1250 Reason for Visit: New patient Chief Complaint: reports: Unrefreshed sleep, Snoring, Excessive daytime sleepiness (sometimes), Frequent awakenings at night. denies: Observed pauses in breathing Date of Onset: 20- 30 years Usual bedtime: 0830 Time it takes to fall asleep: 30 - 60 min Snores at night: Yes (some) Observed to quit breathing while asleep: No Sleeps alone due to snoring: No Number of times waking at night: 4 - 5 Reasons for waking at night: reports: Snoring, Bathroom. denies: Choking, Gasping for air Toss, Turn, or Twitch while sleeping: Yes Recalls having dreams: Yes Usually gets out of bed at: 0530 Feels refreshed in the morning: No Morning headache: Yes (sometimes) Sleepy or fatigued during the day: Yes Ever fallen asleep while driving: No Takes day naps: Yes (I try; they don't last long) Dreams during day naps: No Prior sleep studies: No Additional HPI information: I had the pleasure of seeing ALIYA WINN today regarding the possibility of him having a sleep disorder. His current complaints are insomnia, snoring, frequent night awakenings, and unrefreshed sleep. He has not been sleeping well for a long time. He gets up 3-4 times for the bathroom. He is having a hard time getting to sleep and has tried Melatonin without much help. He tried some trazadone but is not using this. He also has a hard time staying asleep. His states he does snore a little bit and does not take more than a 10 minute nap. He tries to stay pretty active. - Parasomnia Symptoms Ever been unable to move upon waking from sleep: No Walks in sleep: No Talks in sleep: No Ever acted out dreams in sleep: No Ever felt weak in the knees when startled or emotional: No Bothered by creepy, crawly, restless sensations in legs: No Problems with memory or concentration: No Subjective Initial [place] Sleepiness Scale score: 3 (in 2020) Past Medical History Past Medical History: reports: Hypertension, Arthritis, Gout, Arrythmia, GERD Social History The patient's occupation is a retiree. Patient is and lives in [place]. Have you smoked in the past 12 months: Yes Cigarettes per day (20/pack): 20 Years of smokin Quit date: 1966 Smoking Pack Years: 10.0 Alcohol use: Yes Alcohol amount and frequency: 2 beers daily Caffeine use: Yes Caffeine amount and frequency: 3 - 4 cups a day Family History Family history of sleep disordered breathing: No Allergies and Home Medications Drug allergies reviewed: Yes (NKDA) Home medication list reviewed: Yes Allergy and home medication list: Metoprolol Nexium Allopurinol see rest on chart list Review of Systems Weight gain over past 5 years: 3-5 Cardiovascular: reports: high blood pressure Gastrointestinal: reports: heartburn Urinary: reports: frequency, urgency Neurological: reports: headaches Ear/Nose/Throat: reports: sinus problems, tonsillectomy, wisdom teeth removed Musculoskeletal: reports: back pain Immunologic: reports: sneezing (runny nose) Physical Exam Blood Pressure: 149/88 Cuff size: wrist Heart Rate: 71 O2 Saturation: 98 Height: 5 ft 10 in Weight: 156 lb Body Mass Index: 22.4 BMI Classification: Healthy weight Neck circumference: 15 (inches) Nostrils: patent to airflow Turbinates: normal Mouth and throat: narrow oropharynx Soft palate: long Hard palate: normal Uvula: normal Uvula visualization: 100% Mallampati Class I Tongue: normal in size Tonsils: absent bilaterally Chin and jaw: normal size and position Heart: regular rate and rhythm Lungs: clear bilaterally Impression and Plan 1. Suspected Obstructive Sleep Apnea-Hypopnea Syndrome, as suggested by a history of snoring, morning headache, frequent awakening during the night, unre freshed sleep, and excessive daytime sleepiness. Narrow oropharynx and obesity are common predisposing factors for obstructive sleep apnea-hypopnea syndrome. I recommend proceeding to polysomnography to confirm the diagnosis and to assess severity. If the patient has significant sleep disordered breathing, a manual CPAP titration study will also be performed to find the optimal treatment pressure. I informed the patient of what the sleep studies involve and after some discussion, obtained agreement to proceed. The pathophysiology of obstructive sleep apnea-hypopnea syndrome was discussed with the patient and health risks of cardiovascular and cerebrovascular disease if not treated. Risks of drowsy driving discussed in detail and patient advised to avoid long distance driving and to crop puller at the first sign of drowsiness. Patient agreed to plan. * Schedule polysomnography +- manual CPAP titration study and return in 1-2 weeks after the study to discuss result and initiate therapy. * Avoid long distance driving or driving when feeling sleepy. * Avoid alcohol, sedative and muscle relaxant around bedtime. * Attempt to lose weight. * Review instructions provided by trained office staff on how to prepare for the sleep study. * Return for follow-up after sleep study completed. Visit Type: In Office Time Spent with Patient (minutes): 33 Provider Statement: I spent 100% of the Face to Face Visit with the patient with greater than 50% spent counseling the patient and coordination of care.
== END 2020-07-03 12:51 | disposition home or self-care (01) ==
LOC: SC 12:50
PROVIDERS: ATTEND Nurse Practitioner Family
DX: G47.10 Hypersomnia, unspecified (principal); G47.8 Other sleep disorders; R51.9 Headache, unspecified; R06.83 Snoring
CPT/HCPCS: 99203; G0463; 99212

== ENCOUNTER 2020-09-17 07:04 | Outpatient (CLI) | payer MEDICARE, OTHER ==
[2020-09-17 12:02] LABS: BASOPHILS % (AUTO) 0.9 %; EOSINOPHILS # (AUTO) 0.3 10^3/uL (0.0-0.7); EOSINOPHILS % (AUTO) 7.3 %; HCT - HEMATOCRIT 42.5 % (42.0-52.0); LYMPHOCYTES # (AUTO) 1.6 10^3/uL (1.5-3.5); LYMPHOCYTES % (AUTO) 34.9 %; MEAN CORPUSCULAR HEMOGLOBIN 31.7 pg (27.0-31.0); MEAN CORPUSCULAR HGB CONC 32.9 g/dL (32.0-36.0); MEAN CORPUSCULAR VOLUME 96.2 fL (80.0-94.0); MEAN PLATELET VOLUME 10.7 fL (7.4-11.4); MONOCYTES # (AUTO) 0.5 10^3/uL (0.0-1.0); MONOCYTES % (AUTO) 10.9 %; NEUTROPHILS # (AUTO) 2.1 10^3/uL (1.5-6.6); NEUTROPHILS % (AUTO) 45.8 %; PLT - PLATELET COUNT 190 10^3/uL (130-450); RED BLOOD COUNT 4.42 10^6/uL (4.70-6.10); RED CELL DISTRIBUTION WIDTH 12.9 % (12.0-15.0); WHITE BLOOD COUNT 4.7 x10^3/uL (4.8-10.8)
[2020-09-17 12:49] LABS: FERRITIN 86.9 ng/mL (23.9-336.2)
[2020-09-17 12:52] LABS: % IRON SATURATION 23 % (20-50); ALBUMIN 4.6 g/dL (3.2-5.5); ALBUMIN/GLOBULIN RATIO 1.6 (1.0-2.2); ALKALINE PHOSPHATASE 66 IU/L (42-121); ALT ALANINE AMINOTRANSFERASE 25 IU/L (10-60); AST ASPARTATE AMINOTRANSFERASE 32 IU/L (10-42); BILIRUBIN,TOTAL 0.8 mg/dL (0.2-1.0); BUN - BLOOD UREA NITROGEN 15 mg/dL (6-20); CALCIUM 9.5 mg/dL (8.5-10.3); CARBON DIOXIDE - CO2 28 mmol/L (21-32); CHLORIDE 97 mmol/L (101-111); CHOL/HDL RATIO 2.5 (<5.0); CHOLESTEROL 176 mg/dL; CREATININE 0.9 mg/dL (0.6-1.2); GFR - MDRD 81 (>89); GLUCOSE 103 mg/dL (70-100); HDL CHOLESTEROL 71 mg/dL; IRON 74 ug/dL (45-182); LDL CHOLESTEROL,CALCULATED 95 mg/dL; LDL/HDL RATIO 1.3 (<3.6); POTASSIUM 4.5 mmol/L (3.5-5.0); SODIUM 134 mmol/L (135-145); TOTAL IRON BINDING CAPACITY 328 ug/dL (250-450); TOTAL PROTEIN 7.5 g/dL (6.7-8.2); TRANSFERRIN 234 mg/dL (180-329); TRIGLYCERIDES 52 mg/dL; URIC ACID 4.1 mg/dL (2.6-7.2); VLDL CHOLESTEROL 10 mg/dL
== END 2020-09-17 23:59 | disposition home or self-care (01) ==
LOC: LAB.WCP 07:04
PROVIDERS: ATTEND Family Medicine
DX: I10 Essential (primary) hypertension (principal); D64.9 Anemia, unspecified; M10.9 Gout, unspecified; N40.0 Benign prostatic hyperplasia without lower urinary tract symptoms
CPT/HCPCS: 36415; 80053; 80061; 82607; 82728; 83540; 83721; 84153; 84466; 84550; 85025

== ENCOUNTER 2020-10-05 10:05 | Outpatient (CLI) | payer MEDICARE, OTHER ==
--- NOTE | 2020-10-05 15:18 | XRAY Report ---
PROCEDURE: Cervical Spine 2 View INDICATIONS: CERVICAL RADICULOPATHY TECHNIQUE: 4 view(s) of the cervical spine were acquired. COMPARISON: MRI cervical spine 09/19/2014 FINDINGS: Bones: No fractures or dislocations to the C7-T1 level. The lateral masses of C1 appear intact on t he odontoid view. No suspicious bony lesions. There is straightening of cervical curvature. Multile [place] severe space narrowing is present from C4-5 through C6-7. Small anterior nonbridging osteophytes are present. Multilevel uncovertebral hypertrophy is present. Soft tissues: No prevertebral soft tissue swelling. IMPRESSION: Straightening and marked disc space narrowing within the mid cervical spine and uncovert ebral hypertrophy. If clinical concern persists for foraminal narrowing, MRI is recommended. Reviewed by: Yohana Connors MD on 10/05/2020 3:17 PM PDT Approved by: Yohana Connors MD on 10/05/2020 3:17 PM PDT Station ID: [id number]
== END 2020-10-05 10:06 | disposition home or self-care (01) ==
LOC: DI.N 10:05
PROVIDERS: ATTEND Family Medicine
DX: M47.812 Spondylosis without myelopathy or radiculopathy, cervical region (principal)

== ENCOUNTER 2020-10-17 09:05 | Outpatient (CLI) | payer MEDICARE, OTHER ==
--- NOTE | 2020-10-17 20:14 | XRAY Report ---
PROCEDURE: Shoulder 2 View RT INDICATIONS: RIGHT SHOULDER PAIN TECHNIQUE: 2 views of the shoulder were acquired. COMPARISON: None. FINDINGS: Bones: No fractures or dislocations. No suspicious bony lesions. Visualized ribs appear intact. D egenerative changes are seen, including involving the acromioclavicular joint. Soft tissues: No suspicious soft tissue calcifications. The visualized lung demonstrates a normal a ppearance. IMPRESSION: Degenerative changes are seen by plain film. If it would be helpful for clinical management decision making, please consider a dedicated shoulder MRI for further evaluation (assuming that there is no contraindication). Reviewed by: Eddie Montenegro MD on 10/17/2020 7:12 PM IS[facility] Approved by: Eddie Montenegro MD on 10/17/2020 7:12 PM IS[facility]O Station ID: [id number]
== END 2020-10-17 09:06 | disposition home or self-care (01) ==
LOC: DI.N 09:05
PROVIDERS: ATTEND Family Medicine
DX: M19.011 Primary osteoarthritis, right shoulder (principal)

== ENCOUNTER 2021-01-23 08:00 | Outpatient (CLI) | payer MEDICARE, OTHER ==
--- NOTE | 2021-01-23 10:39 | XRAY Report ---
PROCEDURE: Lumbar Spine 2 View INDICATIONS: RIGHT SIDE LOW BACK PAIN, ATRAUMATIC TECHNIQUE: 3 views of the lumbar spine were acquired. COMPARISON: 06/22/2020, 02/02/2017, 02/06/2015. Correlation is also made with lumbar MRI 07/07/2012 FINDINGS: Bones: 5 [id number] vertebrae are present. No vertebral body compression fractures. No susp icious bony lesions. Mild dextroconvex scoliotic curvature is seen. Minimal anterolisthesis is seen at the L3-L4 level. Right-sided pedicle screws can be seen at L4-L5, with a vertical fixation sharon. There is a disc spacer seen at this level. No findings of hardware failure or hardware loosening can be seen. There is moderate disc space narrowing seen at L1-L2, with mild to moderate disc space narrowing at L 2-L3. At L3-L4 and L5-S1, there is at least moderate disc space narrowing seen. Endplate irregularity and sclerosis are seen, which are worst at the L5-S1 level. Soft tissues: Overlying bowel gas pattern is normal. No suspicious soft tissue calcifications. Athe rosclerotic calcification is seen. Cholecystectomy clips are seen. IMPRESSION: Unremarkable stable L4-5 postoperative change. Lower lumbar spine degenerative changes are seen, which are worst at L5-S1. Reviewed by: Eddie Montenegro MD on 01/23/2021 9:38 AM [facility] Approved by: Eddie Montenegro MD on 01/23/2021 9:38 AM IS[facility]O Station ID: [id number]
== END 2021-01-23 23:59 | disposition home or self-care (01) ==
LOC: DI.N 08:00
PROVIDERS: ATTEND Physician Assistant Medical
DX: M47.816 Spondylosis without myelopathy or radiculopathy, lumbar region (principal); M47.817 Spondylosis without myelopathy or radiculopathy, lumbosacral region

== ENCOUNTER 2021-01-23 09:07 | Outpatient (CLI) | payer MEDICARE, OTHER | END 2021-01-23 23:59 | disposition home or self-care (01) | LOC: LAB.N 09:07 | PROVIDERS: ATTEND Physician Assistant Medical | DX: R10.9 Unspecified abdominal pain (principal) | CPT/HCPCS: 87086 ==

== ENCOUNTER 2021-01-24 07:52 | Emergency (ER) | payer MEDICARE, OTHER ==
--- NOTE | 2021-01-24 07:58 | ED Physician Documentation ---
PD HPI BACK PAIN - Stated complaint Stated Complaint: LOWER BACK PX - History obtained from History obtained from: Patient - History of Present Illness Timing - onset: How many days ago (5) Timing - duration: Days (5) Timing - details: Gradual onset, Still present, Waxing and waning (worse during daytime, moving and active. Better when resting at night.) Location: Lower, Right (feels thoracolumbar back with radiation around to right low abd.) Quality: Pain, Sharp (with torsional movement), Aching Associated symptoms: No: Fever, Weakness, Numbness Improves with: Rest, Meds (Ibuprofen has helped moderately but also upsetting his stomach.) Worsened by: Movement Contributing factors: No: Trauma, Cancer Similar symptoms before: Has not had sx before Recently seen: Clinic (walk in yesterday and had lumbar xray showing chronic changes, and a urine test showing some blood, per patient. He states he was started on abx for UTI.) Review of Systems Constitutional: denies: Fever, Chills Nose: denies: Rhinorrhea / runny nose, Congestion Throat: denies: Sore throat Respiratory: denies: Cough GI: reports: Nausea. denies: Vomiting, Constipation, Diarrhea : denies: Dysuria, Hematuria, Discharge Skin: denies: Rash Neurologic: denies: Focal weakness, Numbness PD PAST MEDICAL HISTORY - Past Medical History Cardiovascular: Hypertension, High cholesterol, Murmur Respiratory: None Endocrine/Autoimmune: None GI: GERD, Colon polyps, Hemorrhoids : Benign prostate hypertrophy, Retention HEENT: Chronic hearing loss, Other Psych: Post traumatic stress disorder Musculoskeletal: Osteoarthritis, Gout, Chronic back pain Derm: Other - Past Surgical History General: Cholecystectomy, Appendectomy Ortho: Rotator cuff repair, Spine surgery, Other HEENT: Cataracts - Present Medications Home Medications: Ambulatory Orders Medication Instructions Recorded Confirmed Losartan [Cozaar] 100 mg PO DAILY 06/08/14 12/19/19 Metoprolol Tartrate 25 mg PO DAILY 06/08/14 12/19/19 Tamsulosin HCl [Flomax] 0.4 mg PO DAILY 04/17/19 12/19/19 Atorvastatin Calcium 40 mg PO DAILY 05/08/19 12/19/19 Fluticasone [Flonase] 1 sprays ROMIE BID PRN 05/08/19 12/19/19 Gabapentin 300 mg PO BID 05/08/19 12/19/19 Pantoprazole Sodium [Protonix] 40 mg PO DAILY 05/08/19 12/19/19 oxyCODONE [Roxicodone] 5 mg PO Q4H PRN #20 tablet 05/21/19 12/19/19 Hydrocodone/Acetaminophen [Abing[place] 1 each PO Q6H PRN #15 tablet 09/30/19 12/19/19 5-325 Tablet] Naproxen 375 mg PO BID #20 tablet 09/30/19 12/19/19 HYDROcod/ACETAM 5/325 [[place] 5/325] 1 ea PO Q6H PRN #15 tablet 01/24/21 tiZANidine [Zanaflex] 4 mg PO Q8H PRN #25 tablet 01/24/21 - Allergies Allergies/Adverse Reactions: Allergies Allergy/AdvReac Type Severity Reaction Status Date / Time No Known Drug Allergies Allergy Verified 01/24/21 08:01 - Social History Does the pt smoke?: No Smoking Status: Never smoker Does the pt drink ETOH?: Yes Does the pt have substance abuse?: No PD ED PE NORMAL - Vitals Vital signs reviewed: Yes - General General: Alert and oriented X 3, Well developed/nourished, Other (appears in discomfort with ROM of the low back. Pointing to right thoracolumbar side for area of pain. ) - Neck Neck: Supple, no meningeal sign, No adenopathy - Cardiac Cardiac: RRR, No murmur - Respiratory Respiratory: Clear bilaterally - Abdomen Abdomen: Normal bowel sounds, Soft, Non tender, Non distended, No organomegaly - Male Male : Deferred - Rectal Rectal: Deferred - Back Back: No CVA TTP (not really in CVA area. Mild soft tissue tender right upper lumbar area. No skin sensitivity. No rash nor sores. ), No spinal TTP - Derm Derm: Normal color, Warm and dry, No rash - Extremities Extremities: No edema, No calf tenderness / cord - Neuro Neuro: Alert and oriented X 3, No motor deficit, No sensory deficit, Normal speech Results - Vitals Vitals: Vital Signs - 24 hr 01/24/21 07:55 Temperature 36.6 C Heart Rate 64 Respiratory 15 Rate Blood Pressure 138/81 H O2 Saturation 100 Oxygen O2 Source Room air - Labs Labs: Laboratory Tests 01/24/21 01/24/21 01/24/21 08:17 08:26 08:26 WBC 5.2 RBC 4.22 L Hgb 14.0 Hct 39.7 L MCV 94.1 H MCH 33.2 H MCHC 35.3 RDW 12.1 Plt Count 171 MPV 10.0 Neut # (Auto) 3.1 Lymph # (Auto) 1.3 L [place] # (Auto) 0.5 Eos # (Auto) 0.2 Baso # (Auto) 0.0 Absolute Nucleated RBC 0.00 Nucleated RBC % 0.0 Sodium 134 L Potassium 4.6 Chloride 98 L Carbon Dioxide 26 Anion Gap 10.0 BUN 16 Creatinine 0.9 Estimated GFR (MDRD) 80 L Glucose 102 H Calcium 9.0 Total Bilirubin 0.8 AST 27 ALT 21 Alkaline Phosphatase 64 Total Protein 7.0 Albumin 4.2 Globulin 2.8 Albumin/Globulin Ratio 1.5 Lipase 37 Urine Color YELLOW Urine Clarity CLEAR Urine pH 7.5 Ur Specific [place] 1.015 Urine Protein NEGATIVE Urine Glucose (UA) NEGATIVE Urine Ketones NEGATIVE Urine Occult Blood NEGATIVE Urine Nitrite NEGATIVE Urine Bilirubin NEGATIVE Urine Urobilinogen 0.2 (NORMAL) Ur Leukocyte Esterase NEGATIVE Ur Microscopic Review NOT INDICATED Urine Culture Comments NOT INDICATED - Rads (name of study) abd/pelvic CT Radiology: Prelim report reviewed (no kidney stones. No acute process per se. Question of some wall thickening in duodenum.), See rad report PD MEDICAL DECISION MAKING - ED course Complexity details: reviewed results (question of some duodenal wall thickening. Otherwise no acute. Presume mainly musculoskeletal back pain. ), re-evaluated patient (He drove himself here and will be driving home. Pain has been 5 days and he is not in extreme pain, so will give Rx for stronger meds for home. Toradol given here as last NSAIDs were last evening. ), considered differential (area of pain and inciting factors suggest musculoskeletal, but also consider kidney stone, aortic/vascular, less likely appendix or diverticular. ), d/w patient Departure - Departure Disposition: 01 Home, Self Care Clinical Impression: Duodenitis Acute right-sided low back pain Qualifiers: Sciatica presence: without sciatica Qualified Code(s): M54.5 - Low back pain Condition: Stable Record reviewed to determine appropriate education?: Yes Instructions: ED Low Back Pain Injury Follow-Up: Constanza Graham DO [Primary Care Provider] - Prescriptions: HYDROcod/ACETAM 5/325 [[place] 5/325] 1 ea PO Q6H PRN #15 tablet PRN Reason: Pain tiZANidine [Zanaflex] 4 mg PO Q8H PRN #25 tablet PRN Reason: Spasms Comments: Urine test appears normal today. Not sure if there was a true infection in the bladder. However the antibiotics are still appropriate as the CT did show some mild inflammation of the small intestine (duodenal) wall which could suggest local infection there. The antibiotics may still be appropriate so continue with those. I believe the main part of your back pain is musculoskeletal. The CT scan did not show any kidney stones, kidney swelling, vascular problems or other organ jury. We will treat this with continuing some anti-inflammatories as you have been doing. To that add tizanidine muscle relaxant 3 times a day. To that add Tylenol or hydrocodone every 4-6 hours if needed for worse pain. Follow-up with your primary care later this week if not improving. I transmitted the script to [facility] in [place]. Discharge Date/Time: 01/24/21 10:37
[2021-01-24 08:01] VITALS: BP 138/81
[2021-01-24] MEDS ORDERED: KETOROLAC 15 MG/ML VIAL IVP STA (08:18)
[2021-01-24] MEDS ORDERED: IOPAMIDOL-300 100 ML VIAL ONE (08:25)
[2021-01-24 08:31] LABS: BILIRUBIN,URINE NEGATIVE (NEGATIVE); GLUCOSE, URINE (UA) NEGATIVE (NEGATIVE); KETONES,URINE (UA) NEGATIVE (NEGATIVE); LEUKOCYTE ESTERASE, URINE NEGATIVE (NEGATIVE); NITRITE,URINE NEGATIVE (NEGATIVE); OCCULT BLOOD,URINE NEGATIVE (NEGATIVE); PH,URINE 7.5 PH (5.0-7.5); PROTEIN,URINE NEGATIVE (NEGATIVE); UROBILINOGEN,URINE 0.2 (NORMAL) E.U./dL (NORMAL)
[2021-01-24 08:32] LABS: CLARITY,URINE CLEAR (CLEAR)
[2021-01-24 08:37] LABS: BASOPHILS % (AUTO) 0.4 %; EOSINOPHILS # (AUTO) 0.2 10^3/uL (0.0-0.7); EOSINOPHILS % (AUTO) 3.8 %; HCT - HEMATOCRIT 39.7 % (42.0-52.0); LYMPHOCYTES # (AUTO) 1.3 10^3/uL (1.5-3.5); LYMPHOCYTES % (AUTO) 25.5 %; MEAN CORPUSCULAR HEMOGLOBIN 33.2 pg (27.0-31.0); MEAN CORPUSCULAR HGB CONC 35.3 g/dL (32.0-36.0); MEAN CORPUSCULAR VOLUME 94.1 fL (80.0-94.0); MONOCYTES # (AUTO) 0.5 10^3/uL (0.0-1.0); MONOCYTES % (AUTO) 9.8 %; NEUTROPHILS # (AUTO) 3.1 10^3/uL (1.5-6.6); NEUTROPHILS % (AUTO) 60.1 %; PLT - PLATELET COUNT 171 10^3/uL (130-450); RED BLOOD COUNT 4.22 10^6/uL (4.70-6.10); RED CELL DISTRIBUTION WIDTH 12.1 % (12.0-15.0); WHITE BLOOD COUNT 5.2 x10^3/uL (4.8-10.8)
[2021-01-24 08:49] LABS: ALBUMIN 4.2 g/dL (3.2-5.5); ALBUMIN/GLOBULIN RATIO 1.5 (1.0-2.2); BILIRUBIN,TOTAL 0.8 mg/dL (0.2-1.0); CREATININE 0.9 mg/dL (0.6-1.2); POTASSIUM 4.6 mmol/L (3.5-5.0)
[2021-01-24] MEDS ORDERED: IOPAMIDOL-300 100 ML VIAL IVP ONE (09:10)
--- NOTE | 2021-01-24 09:32 | CT Report ---
PROCEDURE: Abdomen/Pelvis W INDICATIONS: right abd/flank pain CONTRAST: IV CONTRAST: Isovue 300 ml: 100 PO CONTRAST: *NO PO CONTRAST TECHNIQUE: After the administration of IV contrast, 5 mm thick sections acquired from the diaphragms to the symp hysis. 5 mm thick coronal and sagittal reformats were acquired. For radiation dose reduction, the f ollowing was used: automated exposure control, adjustment of mA and/or kV according to patient size. COMPARISON: 09/30/2019, 04/17/2019 FINDINGS: Image quality: Excellent. ABDOMEN: Lung bases: Lung bases are clear. Heart size is normal. A small hiatal hernia is incidentally note d. Solid organs: Liver demonstrates normal size. Numerous simple appearing liver cysts are seen, as bef ore. Status post cholecystectomy. No splenic abnormality is seen. Biliary system is non dilated. Bhakta creas enhances normally. No adrenal nodules. Kidneys demonstrate normal size and enhancement, witho ut hydronephrosis. Peritoneum and bowel: The appendix is not clearly identified. Mild wall thickening and hyperenhancem ent can be seen of the duodenum and the proximal to mid small bowel loops, with mild surrounding infl ammatory change. No significant colonic abnormality can be seen. Diverticulosis can be seen, without vilma findings of active diverticulitis. No free air or significant free fluid can be seen. Nodes and vessels: No retroperitoneal or mesenteric adenopathy by size criteria. Aorta and inferior vena cava are normal in size. Atherosclerotic calcification is seen. Miscellaneous: No ventral hernias. PELVIS: Genitourinary: Bladder wall thickness is normal. Miscellaneous: A fat-containing left inguinal hernia is seen. No enlarged inguinal or pelvic lymph n odes are seen. Bones: No suspicious bony lesions. No vertebral body compression fractures. L4-L5 postoperative benjamin rdware is seen. Degenerative changes are seen throughout. IMPRESSION: Likely duodenitis and enteritis. No findings of perforation or abscess. Appendix not definitely seen. Incidental note is made of: Small hiatal hernia Cholecystectomy Liver cysts Diverticulosis is seen, without active diverticulitis. L4-L5 postoperative hardware Fat-containing left inguinal hernia Reviewed by: Eddie Montenegro MD on 01/24/2021 8:31 AM ISID[facility]O Approved by: Eddie Montengero MD on 01/24/2021 8:31 AM ISIDORO Station ID: [id number]
== END 2021-01-24 10:37 | disposition home or self-care (01) ==
LOC: ED 07:52
DX: K29.80 Duodenitis without bleeding (principal); M54.5 Low back pain; K40.90 Unilateral inguinal hernia, without obstruction or gangrene, not specified as recurrent; I10 Essential (primary) hypertension
CPT/HCPCS: 36415; 74177; 80053; 81003; 83690; 85025; 96374; 99284; Q9967; 81001; 87086

== ENCOUNTER 2021-08-25 07:03 | Outpatient (CLI) | payer MEDICARE, OTHER ==
[2021-08-25 12:35] LABS: ALBUMIN 4.4 g/dL (3.2-5.5); ALBUMIN/GLOBULIN RATIO 1.4 (1.0-2.2); ALKALINE PHOSPHATASE 74 IU/L (42-121); ALT ALANINE AMINOTRANSFERASE 25 IU/L (10-60); AST ASPARTATE AMINOTRANSFERASE 30 IU/L (10-42); BILIRUBIN,TOTAL 0.7 mg/dL (0.2-1.0); BUN - BLOOD UREA NITROGEN 16 mg/dL (6-20); CALCIUM 9.3 mg/dL (8.5-10.3); CARBON DIOXIDE - CO2 29 mmol/L (21-32); CHLORIDE 98 mmol/L (101-111); CHOL/HDL RATIO 2.5 (<5.0); CHOLESTEROL 160 mg/dL; CREATININE 0.9 mg/dL (0.6-1.2); GFR - MDRD 80 (>89); GLUCOSE 105 mg/dL (70-100); HDL CHOLESTEROL 63 mg/dL; LDL CHOLESTEROL,CALCULATED 79 mg/dL; LDL/HDL RATIO 1.3 (<3.6); POTASSIUM 4.7 mmol/L (3.5-5.0); SODIUM 136 mmol/L (135-145); TOTAL PROTEIN 7.5 g/dL (6.7-8.2); TRIGLYCERIDES 91 mg/dL; VLDL CHOLESTEROL 18 mg/dL
[2021-08-25 12:59] LABS: BASOPHILS % (AUTO) 0.7 %; EOSINOPHILS # (AUTO) 0.3 10^3/uL (0.0-0.7); HCT - HEMATOCRIT 43.2 % (42.0-52.0); HGB - HEMOGLOBIN 14.5 g/dL (14.0-18.0); LYMPHOCYTES # (AUTO) 1.5 10^3/uL (1.5-3.5); LYMPHOCYTES % (AUTO) 35.6 %; MEAN CORPUSCULAR HEMOGLOBIN 31.5 pg (27.0-31.0); MEAN CORPUSCULAR HGB CONC 33.6 g/dL (32.0-36.0); MEAN CORPUSCULAR VOLUME 93.9 fL (80.0-94.0); MEAN PLATELET VOLUME 10.8 fL (7.4-11.4); MONOCYTES # (AUTO) 0.5 10^3/uL (0.0-1.0); MONOCYTES % (AUTO) 11.5 %; NEUTROPHILS # (AUTO) 1.9 10^3/uL (1.5-6.6); PLT - PLATELET COUNT 174 10^3/uL (130-450); RED CELL DISTRIBUTION WIDTH 12.3 % (12.0-15.0); WHITE BLOOD COUNT 4.3 x10^3/uL (4.8-10.8)
== END 2021-08-25 07:04 | disposition home or self-care (01) ==
LOC: LAB.N 07:03
PROVIDERS: ATTEND Nurse Practitioner Family
DX: R14.0 Abdominal distension (gaseous) (principal); E78.5 Hyperlipidemia, unspecified; M10.9 Gout, unspecified
CPT/HCPCS: 36415; 80053; 80061; 83721; 84550; 85025

== ENCOUNTER 2021-10-11 07:31 | Outpatient (CLI) | payer MEDICARE, OTHER ==
--- NOTE | 2021-10-11 11:21 | XRAY Report ---
PROCEDURE: Chest 2 View X-Ray INDICATIONS: WALKING PNEUMONIA TECHNIQUE: 2 view(s) of the chest. COMPARISON: CT chest without, 11/15/2019. FINDINGS: Surgical changes and devices: None. Lungs and pleura: No pleural effusions or pneumothorax. Lungs are clear. Mediastinum: Mediastinal contours are normal. Heart size is normal. Bones and chest wall: No suspicious bony abnormalities. Soft tissues appear unremarkable. IMPRESSION: No acute cardiopulmonary disease. Reviewed by: Jodie Echeverria MD on 10/11/2021 11:20 AM PDT Approved by: Jodie Echeverria MD on 10/11/2021 11:20 AM PDT Station ID: [id number]
== END 2021-10-11 07:32 | disposition home or self-care (01) ==
LOC: DI.N 07:31
PROVIDERS: ATTEND Physician Assistant Medical
DX: J18.9 Pneumonia, unspecified organism (principal)

== ENCOUNTER 2022-03-02 07:50 | Outpatient (CLI) | payer MEDICARE, OTHER | END 2022-03-02 07:51 | disposition home or self-care (01) | LOC: DI 07:50 | PROVIDERS: ATTEND Nurse Practitioner Family | DX: I11.9 Hypertensive heart disease without heart failure (principal); I08.0 Rheumatic disorders of both mitral and aortic valves; Q21.12 Patent foramen ovale | CPT/HCPCS: 93306 ==

== ENCOUNTER 2022-08-30 07:45 | Outpatient (CLI) | payer MEDICARE, OTHER ==
--- NOTE | 2022-08-30 07:59 | CARDIAC PROCEDURE NOTE ---
Stress Test Report Service Date: 08/30/22 Service Time: 08:00 Ordering Provider: Mary Lou Jimenez ARNP Indication for Test: Assess chest pain in patient who is considering undergoing elective hip replacement surgery. Significant Medical History: Monty has a significant CAD risk profile (as below) but reports undergoing a coronary angiogram in his early 50's that he was told was unremarkable; this was ~20 years after he discontinued cigarette smoking. He remains physically active, walking several blocks in his neighborhood, with only minimal inclines; his exertional tolerance is limited more by back and hip pain than any cardiovascular symptoms. He was seen at an E.D. several weeks ago for what he describes as upper abdominal fullness with intermittent burping, that partially, but not completely, relieved the discomfort. Records indicate that troponins were negative. He will be seeing an orthopedic surgeon in early September to discuss potential hip replacement surgery and today's test was ordered as part of risk stratification for this procedure. When seen by Ms Jimenez on August 11 his office BP was recorded at 154/78 and he was encouraged to increase his metoprolol tartrate from 25 mg at HS (along with losartan 100 mg) to metoprolol tartrate 25 mg q12 hr. He did this for a while but was seeing late afternoon SBPs <100, so he went back to taking it only at bedtime. Cardiac Risk Factors: Positive for hypertension, dyslipidemia and family history of CAD in his father ( of MS at age 47); no history of diabetes; remote and likely noncontributory history of cigarette smoking (quit in 1966). Type of Stress Test: ETT with Echocardiography Procedure: -Exercise Treadmill Test- After signing informed consent, the patient underwent echo imaging at rest and then performed treadmill exercise using a Modified Durga protocol. The patient exercised for 8 minutes 41 seconds and achieved a peak heart rate of 132 (98 percent predicted maximum heart rate for age), and an estimated workload of 4.6 METS. The test was terminated due to fatigue/shortness of breath. Resting heart rate: 84 Peak heart rate: 132 Normal response to exercise. Resting BP: 155/81 Peak BP: 203/107 Elevated resting systolic BP with physiologic increase in SBP and abnormal increase in DBP in response to exercise. Rhythm during exercise: Sinus rhythm throughout Symptoms: No abdominal or chest discomfort was reported. EKG at rest showed normal sinus rhythm with right bundle branch block with occasional PAC's; possible lead V2-V4 lead reversal noted. EKG at peak stress showed occasional beats with horizontal to downsloping ST depression up to 1 mm in leads V4-V5, with computer assessment of summed beats stating [address] depression at peak exercise; predictive value of these findings for ischemia is reduced due to resting ST/T abnormalities present in these leads secondary to RBBB. In Recovery heart rate decreased rapidly and normally towards baseline. Echo imaging, performed at rest and with stress, will be reported separately. IParish MD, was present throughout this treadmill stress study and supervised it in its entirety. Summary: 1) Exercise tolerance likely above average for age and sex as evidenced by attainment of 4.6 METS and EDWARD of -62% (for modified Durga protocol). 2) Abnormal resting EKG with right bundle branch block. 3) Adequate level of exercise was achieved on this treadmill stress test. 4) Abnormal BP response to exercise, as detailed above. 5) No clear ischemic changes by EKG criteria were seen at peak stress. 6) Echo image interpretation reveals normal resting left ventricular size, wall thickness and systolic function, with prominent septal "knuckle", mild elevation of estimated RV/PA systolic pressure and mild aortic insufficiency. Following peak stress there was appropriate hyperdynamic augmentation of all segments with exercise, indicating no evidence of prior infarct or inducible ischemia. See formal separate echo report for more details. Conclusions/Recommendations: 1) Reassuring modified Durga protocol stress echocardiogram, demonstrating intact exercise tolerance for age, no symptoms nor echo imaging evidence of ischemia. Patient is thus likely at average cardiovascular risk for age for contemplated hip replacement surgery. 2) Following test conclusion it was recommended to the patient that he change his metoprolol dosing to one half of a 25 mg metoprolol tartrate tablet taken every 12 hours (ie 12.5 mg bid) for better pharmacodynamic coverage of his blood pressure. It would be very reasonable to replace metoprolol tartrate with metoprolol succinate at 25 mg taken once daily for its long-acting effect.
== END 2022-08-30 14:33 | disposition home or self-care (01) ==
LOC: DI 07:45
PROVIDERS: ATTEND Nurse Practitioner Family
DX: R01.1 Cardiac murmur, unspecified (principal); R94.31 Abnormal electrocardiogram [ECG] [EKG]; R07.9 Chest pain, unspecified; I10 Essential (primary) hypertension; E78.5 Hyperlipidemia, unspecified; Z82.49 Family history of ischemic heart disease and other diseases of the circulatory system; Z87.891 Personal history of nicotine dependence; I45.10 Unspecified right bundle-branch block
CPT/HCPCS: 93016; 93017; 93018; 93350

== ENCOUNTER 2022-09-01 07:06 | Outpatient (CLI) | payer MEDICARE, OTHER ==
[2022-09-01 11:58] LABS: BASOPHILS % (AUTO) 0.6 %; EOSINOPHILS # (AUTO) 0.3 10^3/uL (0.0-0.7); LYMPHOCYTES # (AUTO) 1.5 10^3/uL (1.5-3.5); LYMPHOCYTES % (AUTO) 32.5 %; MEAN CORPUSCULAR HEMOGLOBIN 32.2 pg (27.0-31.0); MEAN CORPUSCULAR HGB CONC 34.2 g/dL (32.0-36.0); MEAN CORPUSCULAR VOLUME 94.1 fL (80.0-94.0); MEAN PLATELET VOLUME 10.5 fL (7.4-11.4); MONOCYTES # (AUTO) 0.6 10^3/uL (0.0-1.0); MONOCYTES % (AUTO) 13.8 %; NEUTROPHILS # (AUTO) 2.2 10^3/uL (1.5-6.6); NEUTROPHILS % (AUTO) 46.7 %; PLT - PLATELET COUNT 179 10^3/uL (130-450); RED BLOOD COUNT 4.04 10^6/uL (4.70-6.10); RED CELL DISTRIBUTION WIDTH 12.5 % (12.0-15.0); WHITE BLOOD COUNT 4.7 x10^3/uL (4.8-10.8)
[2022-09-01 12:07] LABS: ALBUMIN/GLOBULIN RATIO 1.3 (1.0-2.2); ALKALINE PHOSPHATASE 75 IU/L (42-121); ALT ALANINE AMINOTRANSFERASE 20 IU/L (10-60); AST ASPARTATE AMINOTRANSFERASE 26 IU/L (10-42); BILIRUBIN,TOTAL 0.8 mg/dL (0.2-1.0); BUN - BLOOD UREA NITROGEN 18 mg/dL (6-20); CALCIUM 8.9 mg/dL (8.5-10.3); CARBON DIOXIDE - CO2 28 mmol/L (21-32); CHLORIDE 99 mmol/L (101-111); CHOLESTEROL 144 mg/dL; CREATININE 0.9 mg/dL (0.6-1.2); GFR - MDRD 80 (>89); GLUCOSE 101 mg/dL (70-100); HDL CHOLESTEROL 72 mg/dL; IRON 86 ug/dL (45-182); LDL CHOLESTEROL,CALCULATED 62 mg/dL; LDL/HDL RATIO 0.9 (<3.6); POTASSIUM 4.6 mmol/L (3.5-5.0); SODIUM 133 mmol/L (135-145); TRIGLYCERIDES 50 mg/dL; VLDL CHOLESTEROL 10 mg/dL
[2022-09-01 12:26] LABS: THYROID STIMULATING HORMONE 2.46 uIU/mL (0.34-5.60)
[2022-09-01 12:33] LABS: FERRITIN 115.7 ng/mL (23.9-336.2)
[2022-09-01 15:29] LABS: % IRON SATURATION 28 % (20-50); TOTAL IRON BINDING CAPACITY 311 ug/dL (250-450); TRANSFERRIN 222 mg/dL (180-329)
== END 2022-09-01 07:07 | disposition home or self-care (01) ==
LOC: LAB.N 07:06
PROVIDERS: ATTEND Nurse Practitioner Family
DX: I10 Essential (primary) hypertension (principal); E78.5 Hyperlipidemia, unspecified; D64.9 Anemia, unspecified
CPT/HCPCS: 36415; 80053; 80061; 82607; 82728; 83540; 83721; 84443; 84466; 85025

== ENCOUNTER 2023-02-08 07:05 | Outpatient (CLI) | payer MEDICARE, OTHER ==
[2023-02-08 12:01] LABS: BASOPHILS % (AUTO) 0.6 %; EOSINOPHILS # (AUTO) 0.3 10^3/uL (0.0-0.7); EOSINOPHILS % (AUTO) 5.7 %; HCT - HEMATOCRIT 41.2 % (42.0-52.0); HGB - HEMOGLOBIN 13.9 g/dL (14.0-18.0); LYMPHOCYTES # (AUTO) 1.7 10^3/uL (1.5-3.5); LYMPHOCYTES % (AUTO) 34.6 %; MEAN CORPUSCULAR HEMOGLOBIN 31.4 pg (27.0-31.0); MEAN CORPUSCULAR HGB CONC 33.7 g/dL (32.0-36.0); MEAN CORPUSCULAR VOLUME 93.2 fL (80.0-94.0); MEAN PLATELET VOLUME 10.4 fL (7.4-11.4); MONOCYTES # (AUTO) 0.6 10^3/uL (0.0-1.0); MONOCYTES % (AUTO) 13.4 %; NEUTROPHILS # (AUTO) 2.2 10^3/uL (1.5-6.6); NEUTROPHILS % (AUTO) 45.3 %; PLT - PLATELET COUNT 196 10^3/uL (130-450); RED BLOOD COUNT 4.42 10^6/uL (4.70-6.10); RED CELL DISTRIBUTION WIDTH 12.4 % (12.0-15.0); WHITE BLOOD COUNT 4.8 x10^3/uL (4.8-10.8)
[2023-02-08 12:11] LABS: % IRON SATURATION 25 % (20-50); ALBUMIN 4.3 g/dL (3.2-5.5); ALBUMIN/GLOBULIN RATIO 1.4 (1.0-2.2); ALKALINE PHOSPHATASE 87 IU/L (42-121); ALT ALANINE AMINOTRANSFERASE 20 IU/L (10-60); AST ASPARTATE AMINOTRANSFERASE 25 IU/L (10-42); BILIRUBIN,TOTAL 0.5 mg/dL (0.2-1.0); BUN - BLOOD UREA NITROGEN 12 mg/dL (6-20); CALCIUM 9.8 mg/dL (8.5-10.3); CARBON DIOXIDE - CO2 29 mmol/L (21-32); CHLORIDE 97 mmol/L (101-111); CHOL/HDL RATIO 2.3 (<5.0); CHOLESTEROL 147 mg/dL; CREATININE 0.8 mg/dL (0.6-1.3); GFR - MDRD 92 (>89); GLUCOSE 107 mg/dL (74-104); HDL CHOLESTEROL 65 mg/dL; IRON 78 ug/dL (50-212); LDL CHOLESTEROL,CALCULATED 66 mg/dL; POTASSIUM 4.4 mmol/L (3.5-4.5); SODIUM 133 mmol/L (135-145); TOTAL IRON BINDING CAPACITY 309 ug/dL (250-450); TOTAL PROTEIN 7.3 g/dL (6.4-8.9); TRANSFERRIN 221 mg/dL (203-362); TRIGLYCERIDES 79 mg/dL (48-352); VLDL CHOLESTEROL 16 mg/dL
[2023-02-08 12:37] LABS: FERRITIN 93.1 ng/mL (23.9-336.2)
== END 2023-02-08 07:06 | disposition home or self-care (01) ==
LOC: LAB.N 07:05
PROVIDERS: ATTEND Nurse Practitioner Family
DX: I10 Essential (primary) hypertension (principal); E78.5 Hyperlipidemia, unspecified; D64.9 Anemia, unspecified
CPT/HCPCS: 36415; 80053; 80061; 82607; 82728; 83540; 83721; 84443; 84466; 85025

== ENCOUNTER 2023-06-26 13:51 | Emergency (ER) | payer MEDICARE, OTHER ==
[2023-06-26 15:12] LABS: BASOPHILS % (AUTO) 0.6 %; EOSINOPHILS # (AUTO) 0.5 10^3/uL (0.0-0.7); EOSINOPHILS % (AUTO) 7.3 %; HGB - HEMOGLOBIN 12.8 g/dL (14.0-18.0); LYMPHOCYTES # (AUTO) 1.2 10^3/uL (1.5-3.5); LYMPHOCYTES % (AUTO) 16.9 %; MEAN CORPUSCULAR HEMOGLOBIN 30.6 pg (27.0-31.0); MEAN CORPUSCULAR HGB CONC 33.7 g/dL (32.0-36.0); MEAN CORPUSCULAR VOLUME 90.9 fL (80.0-94.0); MEAN PLATELET VOLUME 9.6 fL (7.4-11.4); MONOCYTES # (AUTO) 0.7 10^3/uL (0.0-1.0); NEUTROPHILS # (AUTO) 4.5 10^3/uL (1.5-6.6); NEUTROPHILS % (AUTO) 64.8 %; PLT - PLATELET COUNT 217 10^3/uL (130-450); RED BLOOD COUNT 4.18 10^6/uL (4.70-6.10); RED CELL DISTRIBUTION WIDTH 12.2 % (12.0-15.0)
[2023-06-26 15:31] LABS: ALBUMIN 4.3 g/dL (3.2-5.5); ALBUMIN/GLOBULIN RATIO 1.5 (1.0-2.2); BILIRUBIN,TOTAL 0.4 mg/dL (0.2-1.0); CALCIUM 9.6 mg/dL (8.5-10.3); CREATININE 1.7 mg/dL (0.6-1.3); POTASSIUM 4.8 mmol/L (3.5-4.5); TOTAL PROTEIN 7.1 g/dL (6.4-8.9)
[2023-06-26] MEDS: SODIUM CHLORIDE 0.9% 1,000 ML IV STA (18:04)
--- NOTE | 2023-06-26 18:39 | ED Physician Documentation ---
History of Present Illness - Stated complaint Stated Complaint: LOW BP,DIZZINESS,JARVIS - Chief complaint Chief Complaint: General - History obtained from History obtained from: Patient, Family - History of Present Illness Timing: Today Pain level max: 0 Pain level now: 0 - Additonal information Additional information: Patient is an 87-year-old male who states he played ping-pong today at the [employer] and when he returned home he felt dizzy. Had no chest pain or shortness of breath. Took his blood pressure and it was 84/60. Came to the emergency department for evaluation. He states he has been eating and drinking normally. Only medication change is Bactrim for UTI. Started taking it on June 09. Review of Systems Constitutional: denies: Fever, Chills Cardiac: denies: Chest pain / pressure Respiratory: denies: Cough GI: denies: Nausea, Vomiting, Diarrhea Skin: denies: Rash Musculoskeletal: denies: Neck pain, Back pain PD PAST MEDICAL HISTORY - Past Medical History Past Medical History: Yes Cardiovascular: Hypertension, High cholesterol, Murmur Respiratory: None Neuro: None Endocrine/Autoimmune: None GI: GERD, Colon polyps, Hemorrhoids : Benign prostate hypertrophy, Retention HEENT: Chronic hearing loss, Other Psych: Post traumatic stress disorder Musculoskeletal: Osteoarthritis, Gout, Chronic back pain Derm: Other - Past Surgical History Past Surgical History: Yes General: Cholecystectomy, Appendectomy, Colonoscopy Ortho: Rotator cuff repair, Spine surgery, Other HEENT: Cataracts - Present Medications Home Medications: Ambulatory Orders Medication Instructions Recorded Confirmed Losartan [Cozaar] 100 mg PO DAILY 06/08/14 06/26/23 Metoprolol Tartrate 25 mg PO DAILY 06/08/14 06/26/23 Tamsulosin HCl [Flomax] 0.4 mg PO DAILY 04/17/19 06/26/23 Atorvastatin Calcium 40 mg PO DAILY 05/08/19 06/26/23 Pantoprazole Sodium [Protonix] 40 mg PO DAILY 05/08/19 06/26/23 Sulfamethoxazole/Trimethoprim 1 each PO BID 06/26/23 06/26/23 [Bactrim 400-80 mg Tablet] - Allergies Allergies/Adverse Reactions: Allergies Allergy/AdvReac Type Severity Reaction Status Date / Time No Known Drug Allergies Allergy Verified 06/26/23 14:08 - Social History Does the pt smoke?: No Smoking Status: Never smoker Does the pt drink ETOH?: Yes Does the pt have substance abuse?: No - Immunizations Immunizations are current?: Yes - POLST Patient has POLST: No PD ED PE NORMAL - Vitals Vital signs reviewed: Yes - General General: Alert and oriented X 3, No acute distress - HEENT HEENT: PERRL, Moist mucous membranes - Neck Neck: Supple, no meningeal sign - Cardiac Cardiac: RRR, Strong equal pulses - Respiratory Respiratory: No respiratory distress, Clear bilaterally - Abdomen Abdomen: Soft, Non tender, Non distended - Derm Derm: Warm and dry - Extremities Extremities: No edema - Neuro Neuro: Alert and oriented X 3 - Psych Psych: Normal mood, Normal affect Results - Vitals Vitals: Vital Signs - 24 hr 06/26/23 06/26/23 06/26/23 14:08 17:59 19:01 Temperature 36.8 C Heart Rate 90 64 70 Respiratory 16 15 16 Rate Blood Pressure 90/60 137/72 H 137/70 H O2 Saturation 94 98 100 Oxygen O2 Source Room air - EKG (time done) 1750 EKG releavant findings:: EKG personally interpreted by author of this note. Relevant findings are: Rate: Rate (enter#) (64) Rhythm: NSR Bryant: Normal Intervals: RBBB - Labs Labs: Laboratory Tests 06/26/23 06/26/23 15:07 15:07 WBC 7.0 RBC 4.18 L Hgb 12.8 L Hct 38.0 L MCV 90.9 MCH 30.6 MCHC 33.7 RDW 12.2 Plt Count 217 MPV 9.6 Neut # (Auto) 4.5 Lymph # (Auto) 1.2 L [place] # (Auto) 0.7 Eos # (Auto) 0.5 Baso # (Auto) 0.0 Absolute Nucleated RBC 0.00 Nucleated RBC % 0.0 Sodium 131 L Potassium 4.8 H Chloride 99 L Carbon Dioxide 25 Anion Gap 7.0 BUN 20 Creatinine 1.7 H Estimated GFR (MDRD) 38 L Glucose 105 H Calcium 9.6 Total Bilirubin 0.4 AST 27 ALT 31 Alkaline Phosphatase 78 Total Protein 7.1 Albumin 4.3 Globulin 2.8 Albumin/Globulin Ratio 1.5 Lipase 69 PD Medical Decision Making - ED course Complexity details: reviewed results, re-evaluated patient, considered differential, d/w patient, d/w family ED course: Patient with an episode of transient hypotension and dizziness earlier today. He is asymptomatic in the emergency department. He does have some elevation of his creatinine. This is likely secondary to the Bactrim he has been placed on. He was originally being treated for UTI, he states that his doctor wanted to treat him for 6 weeks, he states he had no pain near his prostate, no pain with sitting, no pain with bowel movements. He is not having any symptoms now, given the elevation in his creatinine, we will stop the Bactrim at this time and have him follow-up with his doctor to determine if he needs any further antibiotics. No emergency medical condition at this time. No acute findings on EKG. No significant lab abnormalities otherwise. Patient counseled regarding signs and symptoms for which I believe and urgent re-evaluation would be necessary. Patient with good understanding of and agreement to plan and is comfortable going home at this time This document was made in part using voice recognition software. While efforts are made to proofread this document, sound alike and grammatical errors may occur. Departure - Departure Disposition: 01 Home, Self Care Clinical Impression: Dehydration, Acute kidney injury Hypotension Qualifiers: Hypotension type: unspecified hypotension type Qualified Code(s): I95.9 - Hypotension, unspecified Condition: Good Instructions: ED Dehydration Follow-Up: Mary Lou Jimenez ARNP [Primary Care Provider] - Comments: I would stop the Bactrim. Please follow-up with your doctor for further care. You will need to have your kidney function rechecked in about 1 week with your doctor. The Bactrim can cause kidney issues. Please make sure you are drinking plenty of water. Please return if you worsen. Forms: PCP List Discharge Date/Time: 06/26/23 19:12
[2023-06-26 19:07] VITALS: BP 137/70; O2SAT 100
== END 2023-06-26 19:12 | disposition home or self-care (01) ==
LOC: ED 13:51
DX: I95.9 Hypotension, unspecified (principal); E86.0 Dehydration; N17.9 Acute kidney failure, unspecified; I10 Essential (primary) hypertension; E78.00 Pure hypercholesterolemia, unspecified; Z79.899 Other long term (current) drug therapy
CPT/HCPCS: 36415; 80053; 83690; 85025; 93005; 96360; 99283

== ENCOUNTER 2023-07-05 07:03 | Outpatient (CLI) | payer MEDICARE, OTHER ==
[2023-07-05 11:58] LABS: BASOPHILS % (AUTO) 0.5 %; EOSINOPHILS # (AUTO) 0.3 10^3/uL (0.0-0.7); EOSINOPHILS % (AUTO) 4.9 %; HCT - HEMATOCRIT 39.4 % (42.0-52.0); LYMPHOCYTES # (AUTO) 1.4 10^3/uL (1.5-3.5); LYMPHOCYTES % (AUTO) 23.9 %; MEAN CORPUSCULAR HEMOGLOBIN 30.5 pg (27.0-31.0); MEAN CORPUSCULAR VOLUME 92.5 fL (80.0-94.0); MEAN PLATELET VOLUME 10.7 fL (7.4-11.4); MONOCYTES # (AUTO) 0.4 10^3/uL (0.0-1.0); MONOCYTES % (AUTO) 6.7 %; NEUTROPHILS # (AUTO) 3.8 10^3/uL (1.5-6.6); NEUTROPHILS % (AUTO) 63.7 %; PLT - PLATELET COUNT 214 10^3/uL (130-450); RED BLOOD COUNT 4.26 10^6/uL (4.70-6.10); RED CELL DISTRIBUTION WIDTH 12.2 % (12.0-15.0)
[2023-07-05 12:28] LABS: CALCIUM 9.4 mg/dL (8.5-10.3); CREATININE 0.9 mg/dL (0.6-1.3); POTASSIUM 4.3 mmol/L (3.5-4.5)
== END 2023-07-05 07:04 | disposition home or self-care (01) ==
LOC: LAB.N 07:03
PROVIDERS: ATTEND Nurse Practitioner Family
DX: I10 Essential (primary) hypertension (principal); N30.00 Acute cystitis without hematuria; Z79.899 Other long term (current) drug therapy
CPT/HCPCS: 36415; 80048; 85025

== ENCOUNTER 2023-07-10 08:00 | Outpatient (CLI) | payer MEDICARE, OTHER | END 2023-07-10 23:59 | disposition home or self-care (01) | LOC: LAB.N 08:00 | PROVIDERS: ATTEND Physician Assistant | DX: R30.0 Dysuria (principal) | CPT/HCPCS: 87086 ==

== ENCOUNTER 2023-11-24 07:15 | Outpatient (CLI) | payer MEDICARE, OTHER ==
[2023-11-24 11:45] LABS: BASOPHILS % (AUTO) 0.4 %; EOSINOPHILS # (AUTO) 0.3 10^3/uL (0.0-0.7); EOSINOPHILS % (AUTO) 5.3 %; HCT - HEMATOCRIT 40.9 % (42.0-52.0); LYMPHOCYTES # (AUTO) 1.3 10^3/uL (1.5-3.5); LYMPHOCYTES % (AUTO) 23.9 %; MEAN CORPUSCULAR HEMOGLOBIN 30.6 pg (27.0-31.0); MEAN CORPUSCULAR HGB CONC 34.2 g/dL (32.0-36.0); MEAN CORPUSCULAR VOLUME 89.5 fL (80.0-94.0); MEAN PLATELET VOLUME 10.6 fL (7.4-11.4); MONOCYTES # (AUTO) 0.7 10^3/uL (0.0-1.0); MONOCYTES % (AUTO) 14.1 %; NEUTROPHILS # (AUTO) 2.9 10^3/uL (1.5-6.6); NEUTROPHILS % (AUTO) 55.7 %; PLT - PLATELET COUNT 180 10^3/uL (130-450); RED BLOOD COUNT 4.57 10^6/uL (4.70-6.10); RED CELL DISTRIBUTION WIDTH 12.7 % (12.0-15.0); WHITE BLOOD COUNT 5.2 x10^3/uL (4.8-10.8)
[2023-11-24 12:07] LABS: ALBUMIN 4.4 g/dL (3.2-5.5); ALBUMIN/GLOBULIN RATIO 1.6 (1.0-2.2); BILIRUBIN,TOTAL 0.7 mg/dL (0.2-1.0); CALCIUM 9.8 mg/dL (8.5-10.3); CREATININE 0.8 mg/dL (0.6-1.3); POTASSIUM 4.2 mmol/L (3.5-4.5); TOTAL PROTEIN 7.2 g/dL (6.4-8.9)
== END 2023-11-24 07:30 | disposition home or self-care (01) ==
LOC: LAB.N 07:15
PROVIDERS: ATTEND Physician Assistant Medical
DX: R19.7 Diarrhea, unspecified (principal)
CPT/HCPCS: 36415; 80053; 80061; 82150; 83690; 83721; 84443; 84550; 85025